=== PATIENT | female | born 1985 | race Caucasian/White ===

== ENCOUNTER 2018-10-21 13:40 | Outpatient (REF) | payer MEDICAID, SELFPAY ==
--- NOTE | 2018-10-21 11:20 | PAPFT_PTH ---
PATIENT: Lucía Powell LOC: [facility]#:[id number] AGE/SX: 33/F ROOM: RE10/21/[address]: Jazmyn Wang : 1985 BED: DIS: 10/21/2018 SPEC #: [id number] RECD: 10/22/18 11:51 STATUS: KORI CLAY #: [id number] BRITTNEY: 10/21/18 11:[address]: Jazmyn Wang DEPT: [facility] Cytology RECD BY: Elizabeth Haley Tissues: 1 - CX/ENDOCX FOR PAP SMEARS Procedures: PAP THIN PREP/UVM Screening HPV DNA PROBE Comments: [id number]
[2018-10-21 22:02] LABS: Abs Immature Grans 0.01 k/cumm (0.0-0.09); Absolute Basophil Count 0.02 k/cumm (0.0-0.2); Absolute Eosinophil Count 0.08 k/cumm (0.0-0.7); Absolute Lymphocyte Count 1.24 k/cumm (1.2-3.4); Absolute Monocyte Count 0.37 k/cumm (0.11-0.7); Absolute Neutrophil Count 3.22 k/cumm (1.2-6.7); Basophils % 0.4; Eosinophils % 1.6; HCT 41.1 % (36.0-46.0); HGB 13.9 g/dL (12.0-15.5); Immature Grans % 0.2; Lymphocytes % 25.1; Mean Corp. HGB Concentration 33.8 g/dL (32.0-36.0); Mean Corpuscular Hemoglobin 31.5 pg (27.0-33.0); Mean Corpuscular Volume 93.2 fL (80-95); Mean Platelet Volume 12.3 fL (8.0-11.0); Monocytes % 7.5; Neutrophils % 65.2; Platelet Count 207 x1000/uL (130-400); RBC 4.41 m/cumm (4.00-5.20); RBC Distribution Width 12.5 % (11.7-14.6); White Blood Cell Count 4.94 k/cumm (4.4-10.8)
[2018-10-21 22:48] LABS: Anion Gap 9.6 mmol/L (3-11); BUN 8 mg/dL (7-18); C-Reactive Protein 0.19 mg/dL (0.0-0.3); CO2 25.4 mmol/L (21.0-32.0); CREATININE 0.71 mg/dL (0.55-1.02); Calcium 9.1 mg/dL (8.5-10.1); Chloride 105 mmol/L (98-107); Glucose 89 mg/dL (70-100); Magnesium 2.1 mg/dL (1.8-2.4); Sodium 140 mmol/L (136-145); TSH (W/Ref FT4) 1.44 uIU/mL (0.358-3.74)
[2018-10-21 23:03] LABS: ESR 6 MM/HR (0-20)
[2018-10-23 09:33] LABS: Cyclic Citrullinated Peptide <2.5 U/mL (<5.0)
[2018-10-23 10:25] LABS: Rheumatoid Factor <8 IU/mL (<12.5)
[2018-10-23 12:31] LABS: Chlamydia Result Negative; GC Result Negative; Specimen Description SEE COMMENTS
[2018-10-24 14:38] LABS: ANA Interpretation Negative (NEGAT)
== END 2018-10-21 14:00 ==
LOC: NCHCN 13:40
PROVIDERS: PCP Nurse Practitioner Family; Visit Provider Nurse Practitioner Family
DX: M25.50 Pain in unspecified joint (principal); R10.2 Pelvic and perineal pain; F41.8 Other specified anxiety disorders; R06.83 Snoring; F17.210 Nicotine dependence, cigarettes, uncomplicated; J30.2 Other seasonal allergic rhinitis; Z00.00 Encounter for general adult medical examination without abnormal findings; Z12.4 Encounter for screening for malignant neoplasm of cervix; Z11.51 Encounter for screening for human papillomavirus (HPV); Z01.419 Encounter for gynecological examination (general) (routine) without abnormal findings
CPT/HCPCS: 80048; 85652; 86200; 87491; 87591; 88142; 83735; 84443; 85025; 86038; 86140; 86431; 87624

== ENCOUNTER 2020-11-23 20:52 | Emergency (ER) | payer MEDICAID, SELFPAY ==
[2020-11-23] VITALS (22 sets, daily range): BP systolic 100–130; BP diastolic 55–97; PULSE 55–91; RESP 5–26; TEMP 37.1; O2SAT 96–100
--- NOTE | 2020-11-23 20:45 | RT.EKG_ITS ---
APPROVED REPORT Exam: Resting ECG Reason for Exam: chest pain Patient Location: E HR:88 bpm ECG Measurements Heart Rate 88 AXIS KS 145 P 44 QRSd 115 QRS 66 QT 377 T -17 QTc 457 Conclusion Sinus rhythm...normal P axis, V-rate 60- 99 Incomplete right bundle branch block...QRSd >112, terminal axis(90,270)
--- NOTE | 2020-11-23 21:15 | DI.CT_ITS ---
Exam(s) CT CHEST PE CTA EXAM: CT CHEST PE CTA CLINICAL HISTORY: chest pain, left back to chest. TECHNIQUE: Imaging Protocol: CT angiography of the chest was performed using pulmonary embolus bro col. Multi planar reconstructions were performed. CONTRAST MATERIAL: Intravenous: Omnipaque 350 Contrast volume: 100 cc COMPARISON: CR CHEST 2 VIEWS PA,LAT from 02/05/2013 CR CHEST 2 VIEWS PA,LAT from 02/05/2013 FINDINGS: CHEST: PULMONARY ARTERIES: There are no intraluminal filling defects to suggest acute pulmonary emboli. LUNGS: Increased markings in the lung bases consistent with some atelectasis and less than optimal in spiratory effort. No air bronchograms. No confluent infiltrates. No evidence of pulmonary infarcti on.. There are no pleural effusions. No significant focal findings in trachea and mainstem bronchi. MEDIASTINUM: There is no hilar nor mediastinal adenopathy. Visualized thyroid unremarkable. CARDIAC: Heart size is upper normal. There is no pericardial effusion.Caliber of the thoracic aorta is within normal limits. There is no significant shift of the interventricular septum. PARTIALLY VISUALIZED UPPERMOST ABDOMEN: No obvious findings OSSEOUS: No significant osseous lesions.. IMPRESSION: 1. No evidence of acute pulmonary emboli. No evidence of pulmonary infarction.No pleural effusions. 2. Mild increased markings in the lower lobes bilaterally. Probably exaggerated by less than optimal inspiratory effort. No intrathoracic adenopathy evident. RADIATION DOSE DELIVERED: 477mGy.cm Total DLP DATA REPOSITORY: All CT scans at this facility are submitted to the National Radiology Data Registry (NRDR) Dose Index Registry (DIR) with the [employer] (ACR). RADIATION OPTIMIZATION: All CT scans at this facility use at least one of these dose optimization te chniques: automated exposure control; mA and/or kV adjustment per patient size (includes targeted exa ms where dose is matched to clinical indication); or iterative reconstruction.
[2020-11-23] MEDS: HYDROmorphone 2 MG/ML VIAL 1 MG IVP (21:34)
[2020-11-23 21:39] LABS: Abs Immature Grans 0.02 10^3/uL (0.0-0.06); Absolute Basophil Count 0.03 10^3/uL (0.0-0.2); Absolute Eosinophil Count 0.07 10^3/uL (0.0-0.7); Absolute Lymphocyte Count 2.59 10^3/uL (1.2-3.4); Absolute Monocyte Count 0.47 10^3/uL (0.1-0.8); Basophils % 0.5; Eosinophils % 1.1; HGB 12.9 g/dL (11.2-15.7); Immature Grans % 0.3; MCH 30.5 pg (27.0-33.0); MCHC 33.1 % (32.0-36.0); MCV 92.2 fL (80-95); MPV 10.2 fL (8.0-11.0); Monocytes % 7.3; Neutrophils % 50.8; Nucleated RBC 0 %; Platelet Count 269 10^3/uL (130-400); RBC 4.23 10^6/uL (3.93-5.22); RDW 12.3 % (11.7-14.6); WBC 6.48 10^3/uL (4.4-10.8)
[2020-11-23 21:57] LABS: Lipase 97 U/L (73-393)
[2020-11-23 22:03] LABS: ALT 22 U/L (14-59); AST 11 U/L (15-37); Albumin 3.8 g/dL (3.4-5.0); Alkaline Phosphatase 43 U/L (46-116); Anion Gap 9.6 mmol/L (3-11); BUN 11 mg/dL (7-18); Bilirubin, Total 0.4 mg/dL (0.2-1.0); CO2 26.4 mmol/L (21.0-32.0); CREATININE 0.8 mg/dL (0.55-1.02); Calcium 9.1 mg/dL (8.5-10.1); Chloride 106 mmol/L (98-107); Glucose 92 mg/dL (74-106); Potassium 3.3 mmol/L (3.5-5.1); Sodium 142 mmol/L (136-145); Total Protein 6.6 g/dL (6.4-8.2)
[2020-11-23 22:04] LABS: Troponin I < 0.05 ng/mL (<0.06)
--- NOTE | 2020-11-23 22:40 | ED.GENADUL_ITS ---
Discharge Plan Disposition Patient Disposition: HOME Condition: Stable Discharge Details Clinical Impression: Left-sided thoracic back pain, Chest pain Primary Care Provider: Jazmyn Wang ED Provider: Kelsy Whyte Home Meds and New Rx's Prescriptions: New methocarbamol 500 mg tablet 500 mg PO Q6H PRN (Reason: muscle spasm) Qty: 14 RF: 0 lidocaine [Lidoderm] 5 % adhesive patch,medicated 1 patch TP DAILY PRN (Reason: pain) Qty: 15 RF: 0 Continued acetaminophen [Tylenol] 325 MG tablet 325 mg PO PC & HS RF: 0 ibuprofen [Ibuprofen IB] 200 MG tablet 200 mg PO PRN PRNRF: 0 Discharge Instructions Instructions: Chest Pain (ED), Back Pain (ED) Additional Instructions: Alternate ice and heat to the affected area(s) several times daily for 20 minutes at a time. Alternate tylenol and motrin as needed and directed for pain. Take the muscle relaxer methocarbamol and use the Lidoderm patches as needed and directed for pain. Your prescriptions have been sent electronically to your pharmacy. Call the pharmacy to make sure your prescriptions are ready before pickup. Take the prescriptions as directed. Follow-up with your primary care doctor in 1 week. Return to the emergency department with any worsening or new concerning symptoms. Referrals: Jazmyn Wang [Primary Care Provider] - Discharge Data Discharge Date/Time-TO BE ENTERED AT DEPARTURE: 11/24/20 02:03 Discharge Physician: Kelsy Whyte Medical Decision Making <Chacho Ba MD - Last Filed: 11/27/20 10:47> 2249 -- 35-year-old female here with severe pain in her back that radiates through to her chest. Considered acute pulmonary embolism versus aortic dissection. Plan to obtain CT of the chest. Considered ACS. EKG was reviewed and interpreted by me: Sinus rhythm 88 bpm, normal axis, incomplete right bundle branch block, nondiagnostic. Patient was given Dilaudid 1 mg IV for severe pain. Initial labs reviewed -mild hypokalemia noted. I will give potassium chloride 20 mEq PO. 2350 --CT of the chest was interpreted by radiology: Aorta unremarkable. No aortic aneurysm. No aortic dissection. Heart unremarkable. No cardiomegaly. No pericardial effusion. Pleural space is unremarkable. No pneumothorax. No pleural effusion. Lungs unremarkable. There is bibasilar subsegmental atelectasis. No evidence for pulmonary embolism. Patient reassessed and pain has significantly improved. Plan to repeat troponin and I will also give acetaminophen 1 g IV. Results were discussed with the patient. <Kelsy Whyte DO - Last Filed: 11/24/20 04:48> 2300 --please see Dr. Ba's note for initial presentation, exam and plan. Case endorsed to follow-up on repeat troponin and EKG and if unremarkable, plan for discharge home. Repeat troponin negative. Repeat EKG unchanged. Patient reassessed and she is still complaining of left upper back pain. This pain is tender to palpation and reproducible with movement. It is most likely musculoskeletal. Patient does feel comfortable going home. She was given a dose of Decadron, Toradol and Valium. She has a ride home. We will send a prescription for muscle relaxer to her pharmacy. She is advised to alternate Tylenol and Motrin, ice and heat. Advised to follow-up with her primary care doctor for reevaluation and for referral for potential physical therapy or consideration of trigger point injection if indicated. Usual and customary return precautions given prior to discharge. Medical Records Medical records reviewed: Yes I reviewed the patient's medical records. Imaging Data Radiologic Study: Radiologist's impression: CTA Chest With Contrast Exam date and time: 11/23/2020 9:26 PM Age: 35 years old Clinical indication: Pain; Radiating TECHNIQUE: Imaging protocol: Computed tomographic angiography of the chest with contrast. 3D rendering (Not supervised by radiologist): MIP and/or 3D reconstructed images were created by the technologist. COMPARISON: No relevant prior studies available. FINDINGS: Pulmonary arteries: Unremarkable. No pulmonary emboli. Aorta: Unremarkable. No aortic aneurysm. No aortic dissection. Lungs: Unremarkable. No consolidation. No masses. There is bibasilar subsegmental atelectasis. Pleural spaces: Unremarkable. No pneumothorax. No pleural effusion. Heart: Unremarkable. No cardiomegaly. No pericardial effusion. Lymph nodes: Unremarkable. No enlarged lymph nodes. Bones/joints: Unremarkable. No acute fracture. Soft tissues: Unremarkable. IMPRESSION: No evidence for pulmonary embolism. Lab Data Lab results reviewed: Yes I reviewed the patient's lab results. ECG Data Attestation: I personally reviewed and interpreted this ECG (s) as follows: Interpretation: rate of 47, sinus, no acute ST elevation or depression. SD 151. QTc 402. HPI <Chacho Ba MD - Last Filed: 11/27/20 10:47> General Mode of arrival: ambulatory . Date/Time Provider Initiated Documentation: 11/23/20 21:14 . Limitations to Documentation: no limitations . Information obtained by: patient . HPI Narrative: 35-year-old female presents with chief complaint of chest pain. Patient notes that she has had intermittent chest pain over the past few weeks. She states pain is radiating from her left back through her chest. Pain is severe and now constant tonight. No modifiers. She has no associate abdominal pain or nausea vomiting. No shortness of breath. Patient does state she has been under a lot of stress recently and had to put her dog down. Related Data Home Medications Medication Instructions Recorded Confirmed acetaminophen [Tylenol] 325 mg PO PC & HS 07/16/15 11/23/20 ibuprofen [Ibuprofen IB] 200 mg PO PRN PRN 07/16/15 11/23/20 lidocaine [Lidoderm] 1 patch TP DAILY PRN #15 each 11/24/20 methocarbamol 500 mg PO Q6H PRN #14 tab 11/24/20 Previous Rx's Medication Instructions Recorded lidocaine [Lidoderm] 1 patch TP DAILY PRN #15 each 11/24/20 methocarbamol 500 mg PO Q6H PRN #14 tab 11/24/20 Allergies Allergy/AdvReac Type Severity Reaction Status Date / Time No Known Drug Allergies Allergy Unverified 07/16/15 15:29 General Stated Complaint: Chest Pain ELOY: 3 Review of Systems <Chacho Ba MD - Last Filed: 11/27/20 10:47> All systems reviewed & are unremarkable except as noted in HPI and below Constitutional Constitutional: Denies fever(s) Cardiovascular Cardiovascular: Reports as per HPI, Reports chest pain and Denies dyspnea Respiratory Respiratory: Denies dyspnea PFSH <Chacho Ba MD - Last Filed: 11/27/20 10:47> Surgical History section (07/11/12) repeat c/s with BTL Ligation of fallopian tube REPAIR LACERATED EXTENSOR TENDON LIF (07/20/14) Social History Smoking/Tobacco Use Status: Current every day Smoking risk assessment performed?: Yes Alcohol Intake: never Drug use: Occasionally Substance use type: marijuana Do you feel safe at home: Yes Do you feel safe in your relationship?: Yes Exam <Chacho Ba MD - Last Filed: 11/27/20 10:47> Const General: cooperative and no acute distress HENMT Mouth: moist mucous membranes Eyes Conjunctivae: normal conjunctivae Sclera: normal sclerae Neck Neck: trachea midline and supple Resp Auscultation: clear to auscultation bilaterally, no rales, no rhonchi and no wheezes Cardio Rate: regular rate and not tachycardic Rhythm: regular rhythm GI Palpation: soft, not firm, no guarding, no masses, not rigid and nontender Skin General skin exam: no rashes or lesions noted Neuro General: patient alert, patient awake, patient oriented x3 and tone normal Extrem General: no calf tenderness and no edema Psych Appearance: grossly normal Mental Status: mental status grossly normal Other: Tearful Course <Chacho Ba MD - Last Filed: 11/27/20 10:47> Vital Signs Vital signs: Vital Signs Temperature 37.1 C 11/23/20 21:00 Pulse 91 H 11/23/20 21:00 Respiratory Rate 20 11/23/20 21:00 Blood Pressure 130/97 H 11/23/20 21:00 Pulse Oximetry 100 11/23/20 21:00 Temperature 37.1 C 11/23/20 21:00 Temperature Source Temporal Artery Scan 11/23/20 21:00 Pulse 91 H 11/23/20 21:00 Respiratory Rate 20 11/23/20 21:08 Respiratory Effort 11/23/20 21:08 Respiratory Depth Normal 11/23/20 21:08 Respiratory Pattern Normal 11/23/20 21:08 Blood Pressure 130/97 H 11/23/20 21:00 Blood Pressure Position Sitting 11/23/20 21:00 Pulse Oximetry 100 11/23/20 21:00 Oxygen Delivery Method Room Air 11/23/20 21:00 Oxygen Flow Rate 0 11/23/20 21:00 Pain Level 7 11/23/20 21:34 Comment 11/23/20 21:00 Lab/Test Results Lab/Test Results: Laboratory Tests Range/Units 11/23/20 11/23/20 11/23/20 21:30 21:30 21:30 WBC (4.4-10.8) 10^3/uL 6.48 RBC (3.93-5.22) 10^6/uL 4.23 Hgb (11.2-15.7) g/dL 12.9 Hct (36.0-46.0) % 39.0 MCV (80-95) fL 92.2 MCH (27.0-33.0) pg 30.5 MCHC (32.0-36.0) % 33.1 RDW (11.7-14.6) % 12.3 Plt Count (130-400) 10^3/uL 269 MPV (8.0-11.0) fL 10.2 Immature Gran % 0.3 Neutrophils % 50.8 Lymphocytes % 40.0 Monocytes % 7.3 Eosinophils % 1.1 Basophils % 0.5 Nucleated RBC % % 0 Absolute Neutrophils (1.2-6.7) 10^3/uL 3.30 Absolute Lymphocytes (1.2-3.4) 10^3/uL 2.59 Absolute Monocytes (0.1-0.8) 10^3/uL 0.47 Absolute Eosinophils (0.0-0.7) 10^3/uL 0.07 Absolute Basophils (0.0-0.2) 10^3/uL 0.03 Sodium (136-145) mmol/L 142 Potassium (3.5-5.1) mmol/L 3.3 L Chloride (98-107) mmol/L 106 Carbon Dioxide (21.0-32.0) mmol/L 26.4 Anion Gap (3-11) mmol/L 9.6 BUN (7-18) mg/dL 11 Creatinine (0.55-1.02) mg/dL 0.8 Estimated GFR/1.73 m2 (mL/min/1.73m2) >= 60.00 Glucose (74-106) mg/dL 92 Calcium (8.5-10.1) mg/dL 9.1 Total Bilirubin (0.2-1.0) mg/dL 0.4 AST (15-37) U/L 11 L ALT (14-59) U/L 22 Alkaline Phosphatase (46-116) U/L 43 L Troponin I (<0.06) ng/mL < 0.05 Total Protein (6.4-8.2) g/dL 6.6 Albumin (3.4-5.0) g/dL 3.8 Lipase (73-393) U/L 97 Sign Out <Chacho Ba MD - Last Filed: 11/27/20 10:47> Sign Out Data: Sign Out Comment: followup delta trop and reassess for disposition post acetaminophen IV. Last updated by Chacho Ba MD at 11/23/20 23:51
[2020-11-23] MEDS: Omnipaque 350 MG/ML 100 ML BTL IJ (22:53)
[2020-11-23] MEDS: Normal Saline - Diluent 50 ML VIAL IV (22:54)
[2020-11-23] MEDS: Normal Saline Flush 10 ML SYR IVP (22:54)
--- NOTE | 2020-11-23 23:28 | DI.VRAD_ITS ---
PROCEDURE INFORMATION: Exam: CTA Chest With Contrast Exam date and time: 11/23/2020 9:26 PM Age: 35 years old Clinical indication: Pain; Radiating TECHNIQUE: Imaging protocol: Computed tomographic angiography of the chest with contrast. 3D rendering (Not supervised by radiologist): MIP and/or 3D reconstructed images were created by the technologist. COMPARISON: No relevant prior studies available. FINDINGS: Pulmonary arteries: Unremarkable. No pulmonary emboli. Aorta: Unremarkable. No aortic aneurysm. No aortic dissection. Lungs: Unremarkable. No consolidation. No masses. There is bibasilar subsegmental atelectasis. Pleural spaces: Unremarkable. No pneumothorax. No pleural effusion. Heart: Unremarkable. No cardiomegaly. No pericardial effusion. Lymph nodes: Unremarkable. No enlarged lymph nodes. Bones/joints: Unremarkable. No acute fracture. Soft tissues: Unremarkable. IMPRESSION: No evidence for pulmonary embolism. Dictated and Authenticated by: Sae Kelley MD. Ordering:COLIN Flor MD
[2020-11-24] VITALS (22 sets, daily range): BP systolic 92–106; BP diastolic 53–71; PULSE 49–78; RESP 11–25; TEMP 36.6; O2SAT 97–100
--- NOTE | 2020-11-24 00:15 | RT.EKG_ITS ---
APPROVED REPORT Exam: Resting ECG Reason for Exam: CHEST PAIN Patient Location: E HR:47 bpm ECG Measurements Heart Rate 47 AXIS OH 151 P 35 QRSd 107 QRS 58 QT 454 T 21 QTc 402 Conclusion Sinus bradycardia...rate< 60 Low voltage, extremity leads...all extremity leads <0.5mV. Sinus. No STEMI. I have reviewed and interpreted ECG and agree with software generated interpretation.
[2020-11-24] MEDS: Potassium Chloride 20 MEQ TABCR PO (00:16)
[2020-11-24 01:06] LABS: Troponin I < 0.05 ng/mL (<0.06)
[2020-11-24] MEDS: Dexamethasone 10 MG/ML VIAL IVP (01:35)
[2020-11-24] MEDS: diazePAM 5 MG TAB PO (01:36)
[2020-11-24] MEDS: Ketorolac 30 MG/ML VIAL IVP (01:36)
== END 2020-11-24 02:03 | disposition home or self-care (01) ==
PROVIDERS: Student in an Organized Health Care Education/Training Program; Emergency Provider Physician Assistant; PCP Nurse Practitioner Family
DX: M54.6 Pain in thoracic spine (principal); R07.9 Chest pain, unspecified
CPT/HCPCS: 36415; 71275; 80053; 83690; 93005; 96374; 96375; 99285; 84484; 85025; 93010; 99284; J1100; J1885; J3490

== ENCOUNTER 2020-11-25 16:47 | Outpatient (REF) | payer MEDICAID, SELFPAY ==
[2020-11-25 20:01] LABS: ESR < 1 mm/hr (0-20)
[2020-11-25 20:25] LABS: Creatine Kinase 56 U/L (26-192)
[2020-11-28 14:59] LABS: ANA Interpretation Negative (Negative)
== END 2020-11-25 16:48 | disposition home or self-care (01) ==
LOC: NCHCN 16:47
PROVIDERS: PCP Nurse Practitioner Family; Visit Provider Family Medicine
DX: M79.18 Myalgia, other site (principal)
CPT/HCPCS: 82550; 85652; 86038

== ENCOUNTER 2022-01-22 14:01 | Outpatient (REF) | payer MEDICAID, SELFPAY ==
--- NOTE | 2022-01-22 13:30 | PAPFT_PTH ---
PATIENT: Lucía Powell LOC: [facility]#:[id number] AGE/SX: 36/F ROOM: RE01/22/[address]: Jazmyn Wang : 1985 BED: DIS: 01/22/2022 SPEC #: [id number] RECD: 01/22/22 18:25 STATUS: KORI REQ #: [id number] BRITTNEY: 01/22/22 13:[address]: Jazmyn Wang DEPT: REPLACED BY [facility] Cytology RECD BY: Melissa Shah Tissues: 1 - CX/ENDOCX FOR PAP SMEARS Procedures: PAP THIN PREP/UVM Screening HPV DNA PROBE Comments: [id number]
== END 2022-01-22 14:02 | disposition home or self-care (01) ==
LOC: NCHCN 14:01
PROVIDERS: PCP Nurse Practitioner Family; Visit Provider Nurse Practitioner Family
DX: Z12.4 Encounter for screening for malignant neoplasm of cervix (principal); R87.610 Atypical squamous cells of undetermined significance on cytologic smear of cervix (ASC-US); Z11.51 Encounter for screening for human papillomavirus (HPV)
CPT/HCPCS: 88142; 87624

== ENCOUNTER 2022-04-25 17:05 | Emergency (ER) | payer MEDICAID, SELFPAY ==
[2022-04-25 17:43] VITALS: BP 132/89; PULSE 68; RESP 18; TEMP 37.2; O2SAT 98
== END 2022-04-25 18:34 | disposition left against medical advice (07) ==
PROVIDERS: PCP Nurse Practitioner Family
DX: Z53.21 Procedure and treatment not carried out due to patient leaving prior to being seen by health care provider (principal)

== ENCOUNTER 2023-02-15 12:40 | Outpatient (CLI) | payer MEDICAID, SELFPAY ==
[2023-02-15 12:07] LABS: Abs Immature Grans 0.01 10^3/uL (0.0-0.06); Absolute Basophil Count 0.04 10^3/uL (0.0-0.2); Absolute Eosinophil Count 0.06 10^3/uL (0.0-0.7); Absolute Lymphocyte Count 1.77 10^3/uL (1.2-3.4); Absolute Monocyte Count 0.31 10^3/uL (0.1-0.8); Absolute Neutrophil Count 2.43 10^3/uL (1.2-6.7); Basophils % 0.9; Eosinophils % 1.3; HCT 40.3 % (36.0-46.0); HGB 13.2 g/dL (11.2-15.7); Immature Grans % 0.2; Lymphocytes % 38.3; MCH 30.2 pg (27.0-33.0); MCHC 32.8 % (32.0-36.0); MCV 92 fL (80-95); MPV 10.4 fL (8.0-11.0); Monocytes % 6.7; Neutrophils % 52.6; Platelet Count 278 10^3/uL (130-400); RBC 4.37 10^6/uL (3.93-5.22); RDW 12.4 % (11.7-14.6); RDW-SD 42.3 fL; WBC 4.62 10^3/uL (4.4-10.8)
[2023-02-15 12:35] LABS: ALT 22 U/L (14-59); AST 12 U/L (15-37); Albumin 3.9 g/dL (3.4-5.0); Alkaline Phosphatase 44 U/L (46-116); Anion Gap 7.4 mmol/L (3-11); BUN 8 mg/dL (7-18); Bilirubin, Total 0.3 mg/dL (0.2-1.0); CO2 25.6 mmol/L (21.0-32.0); CREATININE 0.8 mg/dL (0.55-1.02); Calcium 9.2 mg/dL (8.5-10.1); Chloride 106 mmol/L (98-107); Estimated GFR 97.87 (mL/min/1.73m2); Glucose 111 mg/dL (74-106); Potassium 4.2 mmol/L (3.5-5.1); Sodium 139 mmol/L (136-145)
== END 2023-02-15 12:41 | disposition home or self-care (01) ==
LOC: LBO 12:40
PROVIDERS: PCP Nurse Practitioner Family; Visit Provider Nurse Practitioner Family
DX: R10.32 Left lower quadrant pain; R51.9 Headache, unspecified; F41.8 Other specified anxiety disorders
CPT/HCPCS: 36415; 80053; 85025

== ENCOUNTER → 2023-03-01 02:21 | Outpatient (CLI) | payer MEDICAID, SELFPAY ==
--- NOTE | 2023-03-01 | DI.CT_ITS ---
Exam(s) CT ABDOMEN PELVIS W EXAM: CT ABDOMEN PELVIS W CLINICAL HISTORY: ABD AND LLQ PAIN, R10.9,R10.32. TECHNIQUE: Imaging Protocol: Axial computed tomography images with coronal and sagittal reformatted images were created and reviewed CONTRAST MATERIAL: Intravenous: Omnipaque 350 Contrast volume:100 ml Oral: yes / COMPARISON: CT CT CHEST PE CTA from 11/23/2020 FINDINGS: ABDOMEN and PELVIS: Lung Bases: Normal where visualized. Liver: Normal density. No measurable mass. Gallbladder and biliary tract: No radiodense calculus or dilation. Pancreas: Normal density. No abnormal calcifications or inflammatory process. No evidence of mass. Spleen: Normal. Kidneys: Normal size, contour and axis. No radiodense stones. No obstructive uropathy. No suspicious masses seen. Adrenal glands: No masses seen. Vasculature: Abdominal aorta non-dilated. Soft tissues: Unremarkable. Bladder: No gross wall thickening. No calculi.No focal mass. Bowel: No obstruction. No bowel wall thickening. Appendix normal. Moderate quantity of stool. Peritoneal cavity: No ascites. No focal collection or mesenteric inflammatory response. Bones: Unremarkable for age. Reproductive organs: Within normal limits. Lymph nodes: Unremarkable. IMPRESSION:: Unremarkable CT scan of the abdomen and pelvis. RADIATION DOSE DELIVERED: Total DLP DATA REPOSITORY: All CT scans at this facility are submitted to the National Radiology Data Registry (NRDR) Dose Index Registry (DIR) with the [employer] (ACR). RADIATION OPTIMIZATION: All CT scans at this facility use at least one of these dose optimization te chniques: automated exposure control; mA and/or kV adjustment per patient size (includes targeted exa ms where dose is matched to clinical indication); or iterative reconstruction.
[2023-03-01] MEDS: Barium Sulfate 2% W/V-Berry Smoothie 450 ML BTL PO (08:59)
[2023-03-01] MEDS: Normal Saline - Diluent 50 ML VIAL IJ (11:20)
[2023-03-01] MEDS: Omnipaque 350 MG/ML 500 ML BTL-Imaging package 100 ML IJ (11:22)
== END ==
PROVIDERS: PCP Nurse Practitioner Family; Visit Provider Nurse Practitioner Family
DX: R10.32 Left lower quadrant pain
CPT/HCPCS: 74177

== ENCOUNTER 2024-01-20 14:33 | Outpatient (REF) | payer MEDICAID, SELFPAY ==
--- NOTE | 2024-01-20 12:30 | PAPFT_PTH ---
PATIENT: Lucía Powell LOC: [facility]#:[id number] AGE/SX: 38/F ROOM: RE01/20/[address]: Jazmyn Wang : 1985 BED: DIS: 01/20/2024 SPEC #: [id number] RECD: 01/21/24 12:56 STATUS: KORI REQ #: [id number] BRITTNEY: 01/20/24 12:[address]: Jazmyn Wang DEPT: [facility] Cytology RECD BY: Melissa Shah Tissues: 1 - CX/ENDOCX FOR PAP SMEARS Procedures: PAP THIN PREP/UVM Screening HPV DNA PROBE Comments: [id number] (HPV 16 & 18/45)
--- OUTSIDE RECORDS SUMMARY | 2024-01-20 14:40 | XMS_ITS | Encounter Summary ---
Author Organization [facility] Address [address] [place] [address] Care Team Providers Care Metal Sprayer Name Role Phone Kylie De La Torre MERT Primary Care Provider [phone] Encounter Details Date Type Department Care Team (Late st Contact Info) Description 10/09/2011 Results Only [facility] [phone] Jitendra Calle MD [address] [place] [address] Social History Tobacco Use Types Packs/Day Years Used Date Smoking Tobacco: Never Assessed Sex and Gender Information Value Date Recorded Sex Assigned at Not on file Gender Identity Not on file Sexual Orientation Not on file documented as of this encounter Plan of Treatment Not on file documented as of this encounter Procedures Procedure Name Priority Date/Time Associated Diagnosis Comments SURGICAL PATHOLOGY Routine 10/09/2011 0:00 EDT documented in this encounter Results * SURGICAL PATHOLOGY (10/09/2011 0:00 EDT) Pathology Report: SURGICAL PATHOLOGY REPORT Reports generated via electronic interface contain original data; however they are lacking the format of the original report. Caution should be taken when reading/interpreti ng unformatted reports. Name: ? LOIDA SYED ? Accession #: ? [id number] ? : ? 1985 (Age: 26) ??F ? Collect Date: ? 10/09/2011 ? Location: ? [facility] ? Receive Date: ? 10/09/2011 ? Provider: JITENDRA CALLE MD Copy to: KYLIE DE LA TORRE POWDER EXPERT ? Final Pathologic Diagnosis: ? A. ?Cervix, 6 o'clock, biopsy: 1. ?Acute and chronic cervicitis. 2. ? Squamous mucosa with reactive epithelial changes. ??See comment. 3. ? Focal parakeratosis. B. ?Endocervix, curettage: 1. ?Benign endocervical tissue. Comment: ? 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 ??The dysplastic cells seen on the Pap test are not identified on the current case. ??Deeper sections have been reviewed on (A). ??(Dr. Parada)/[facility] Document reviewed and electronically signed by: ALEJANDRA AMBROCIO MD Report ??Date: 10/15/2011 13:53 By the signature above, the attending physician certifies that he/she has personally conducted a gross and/or microscopic examination of the described specimens and rendered or confirmed the above diagnosis. Specimen(s) Received: A. ?Ectocervix 6 o'clock B. ? ECC Clinical History: ? 08/24/2011 Pap LSIL; 12/05/2010 Pap LSIL Gross Description: ? Received in formalin labelled Loida Syed and ectocvx 6 o'clock is a zhou-pink biopsy measuring 0.6 x 0.4 x 0.3 cm. ??The specimen is submitted intact as (A). Received in formalin labelled Andre, Loida and ECC is 1.5 cc of blood-tinged mucus admixed with fragments of red-brown tissue. ??The specimen is entirely submitted as (B) following filtration. ??(Parmjit Sparrow)/[facility] End of Report [facility] 10/09/2011 10/09/2011 16: 27 EDT Jitendra Calle MD PATHOLOGY ORDERABLES Performing Organization Address City/State/[facility] Co de Phone Number [facility] [address] [place] [address] documented in this encounter Visit Diagnoses Not on filedocumented in this encounter Care Teams Metal Sprayer Relationship Specialty Start Date End Date Kylie De La Torre FNP [address] [place], [place] [id number] PCP - General 07/16/11 12/20/21 documented as of this encounter
--- OUTSIDE RECORDS SUMMARY | 2024-01-20 14:40 | XMS_ITS | Encounter Summary ---
Author Organization [facility] Address [address] [place] [address] Care Team Providers Care Order Booker Name Role Phone Diamond De La Torre Primary Care Provider [phone] Encounter Details Date Type Department Care Team (Late st Contact Info) Description 02/20/2019 10:44 EDT Hospital Encounter [address] [address] Unknown, Provider, Social History Tobacco Use Types Packs/Day Years Used Date Smoking Tobacco: Never Assessed Interpersonal Safety Answer Date Record ed Physically Hurt Never 11/22/2019 Verbally Threaten Not on file 11/22/2019 Sex and Gender Information Value Date Recorded Sex Assigned at Not on file Gender Identity Not on file Sexual Orientation Not on file documented as of this encounter Plan of Treatment Not on file documented as of this encounter Visit Diagnoses Not on filedocumented in this encounter Care Teams Order Booker Relationship Specialty Start Date End Date Diamond De La Torre FNP [address] [place], [place] [address] PCP - General 07/16/11 12/20/21 documented as of this encounter
--- OUTSIDE RECORDS SUMMARY | 2024-01-20 14:40 | XMS_ITS | Encounter Summary ---
Author Organization [facility] Address [address] [place] [address] Care Team Providers Care Strip Tank Tender Name Role Phone Kylie De La Torre MERT Primary Care Provider [phone] Encounter Details Date Type Department Care Team (Late st Contact Info) Description 07/09/2012 Results Only [facility] [phone] Jitendra Calle MD [address] [place] [address] Social History Tobacco Use Types Packs/Day Years Used Date Smoking Tobacco: Never Assessed Sex and Gender Information Value Date Recorded Sex Assigned at Not on file Gender Identity Not on file Sexual Orientation Not on file documented as of this encounter Plan of Treatment Not on file documented as of this encounter Procedures Procedure Name Priority Date/Time Associated Diagnosis Comments PAP TEST- RESULT ONLY Routine 07/09/2012 0:00 EDT documented in this encounter Results * PAP TEST- RESULT ONLY (07/09/2012 0:00 EDT) Pathology Report: CYTOPATHOLOGY REPORT Reports generated via electronic interface contain original data; however they are lacking the format of the original report. Caution should be taken when reading/interpreti ng unformatted reports. Name: ? LOIDA SYED ? Accession #: ? [id number] : ? 1985 (Age: 27) ??F ?Collect Date: ? 07/09/2012 Location: ? [facility] ? Receive Date: ? 07/10/2012 Provider: ?JITENDRA CALLE MD Copy to: ?KYLIE PAINTING ? Specimen/Source: ?Pap Test, Cervix/Endocervix, ThinPrep Imaging System with manual evaluation Last Menstrual Period: ? Previous Gynecologic Pathology: ? LSIL Treatment History: ? Colposcopy: NEG ? SPECIMEN ADEQUACY ? Satisfactory for Evaluation - transformation zone component present GENERAL CATEGORIZATION ? Epithelial Cell Abnormality INTERPRETATION ? Squamous Cell Abnormality - Low grade squamous intraepithelial lesion (LSIL). EDUCATIONAL NOTES/RECOMMENDATI ONS ? [facility] recommends following the 2006 Consensus Guidelines for the Management of Women with Abnormal Cervical Cancer Screening Tests (JLGTD, 2007;11(4):201-222 ). ??Consensus guidelines are available online at www.ASCCP.org. ? Document reviewed and electronically signed by: ? KYAW MENCHACA MD ? Report Date: ??07/15/2012 15:18 End of Report [facility] 07/09/2012 07/10/2012 Jitendra Calle MD PATHOLOGY ORDERABLES Performing Organization Address City/State/[facility] Co de Phone Number [facility] [address] [place] [address] documented in this encounter Visit Diagnoses Not on filedocumented in this encounter Care Teams Strip Tank Tender Relationship Specialty Start Date End Date Kylie De La Torre FNP [address] [place] [address] PCP - General 07/16/11 12/20/21 documented as of this encounter
--- OUTSIDE RECORDS SUMMARY | 2024-01-20 14:40 | XMS_ITS | Encounter Summary ---
Author Organization [facility] [address] Care Team Providers Care Inspector Fuel Hose Name Role Phone None Primary Care Provider Unavailabl e Reason for Visit * Reason Comments Ultrasound Finding Encounter Details Date Type Department Care Team (Late st Contact Info) Description 03/06/2011 10:00 AM EST Office Visit Obstetrics [place] [address] Jesica Chew MD [facility] [address] [place] [address] Suspected anomaly not found (Primary Dx); Family history of congenital heart disease Discharge Disposition: Home Social History Tobacco Use Types Packs/Day Years Used Date Smoking Tobacco: Every Day Cigarettes Alcohol Use Standard Drinks/Week Comments No 0 (1 standard drink = 0.6 oz pur e alcohol) Comments Yes Sex and Gender Information Value Date Recorded Sex Assigned at Not on file Gender Identity Not on file Sexual Orientation Not on file documented as of this encounter Progress Notes * Jesica Chew MD - 03/06/2011 10:43 AM EST Diagnosis/Maternal Medicine Consult Note Loida Powlel is a 25 y.o. female with an JEFFY of 07/19/11 who is at 20w5d gestation by ultrasound dates. She is referred at the request of Susanne Duarte CNM for evaluation of a ultrasound abnormality. She was seen today for maternal- medicine consultation, ultrasound evaluationand genetic counseling with Julian Bautista. The patient reports an uncomplicated other than a hospitalization for gastroenteritis. The patient has had a quad screen this predicting risk of trisomy 21 at 1:1510, trisomy 18 at 1:10,000 and open neural tube defect at 1:21067. An ultrasound examination on 02/19/11 found the question of echogenic bowel. Past Medical History Diagnosis Date ??? Depresssion as a teenager Past Surgical History Procedure Date ??? section 2005 OB History Grav Para Term Abortions TAB SAB Ect Mult Living 3 1 1 1 1 1 # Outc Date GA Lbr Lewis/2nd Wgt Sex Del Anes PTL Lv 1 PRE 2005 35w6d 2.537kg(5lb9.5oz) M CS Yes 2 SAB 2009 6w0d 3 CUR Family History Problem Relation Age of Onset ??? Heart Defect Son ??? Defects Son ??? Congenital Anomalies Paternal Grandmother transverse terminal limb defect (left arm below elbow) ??? Uterine Cancer Mother ??? Hypertension Mother ??? HIV Father Social History Occupational History ??? Not on file. Social History Main Topics ??? Smoking status: Current Everyday Smoker -- 0.3 packs/day ??? Smokeless tobacco: Not on file ??? Alcohol Use: No ??? Drug Use: No ??? Sexually Active: Not on file Current outpatient prescriptions Medication Sig Dispense Refill ??? Mdxvvpwf-Ir-Wed-Fe-FA ( VITAMIN) Tab Take by mouth. ??? ONDANSETRON HCL (ZOFRAN ORAL) Take by mouth. No Known Allergies Record Review No additional issues Review of Systems Constitutional:no weight loss, fever, night sweats Eyes: negative Ears Nose Throat:negative positive for - nasal congestion Respiratory: positive for - cough Cardiac: negative Gastrointestinal: Normal BM's, denies hematochezia, melena or pain., Denies nausea, vomiting or diarrhea. Genitourinary: Negative for dysuria Musculoskeletal: negative Skin: negative Psychiatric: Negative for anxiety Endocrine:negative Contractions: none Leaking: None Bleeding: none now Physical Exam Last Set of Vitals: LMP 10/04/2010 General: alert, well appearing, in no apparent distress HEENT: normocephalic, atraumatic Extremities: no redness or tenderness in the calves or thighs, no edema Neurologic:alert, oriented, normal speech, no focal findings or movement disorder noted Abdomen: abdomen is soft without significant tenderness, masses, organomegaly or guarding. Psychiatric: Affect is Appropriate. Uterine Size: S=D Ultrasound Growth appropriate for gestational age EFW 462 grams EGA 21 2/7 weeks Amniotic fluid volume normal Placenta anterior Presentation breech Morphology There is no evidence for pathologically significant echogenic bowel. Assessment and Recommendations: 25 y.o. female at 20w5d weeks' gestation. Today's sonogram has no findings worrisome for a structural abnormality, infection or aneuploidy. The patient was counseled as to her risk of aneuploidy and the possibility of definitive diagnosis byamniocentesis. Issues discussed include limitation of information provided, risk of loss of and delay to diagnosis. Amniocentesis will not diagnose cerebral palsy, autism, learning disabilities or single gene defects. The patient has chosen not to have an amniocentesis. As she has a child with structural heart disease, I recommend a echocardiogram which we will help the patient schedule. I appreciate the opportunity to be involved in this patient's care, and am available if further questions should arise. Jesica Chew MD 03/06/2011 documented in this encounter Plan of Treatment Not on file documented as of this encounter Results * Echocardiogram (03/19/2011 5:27 PM EST) Anatomical Region Laterality Modality Other 03/20/2011 Narrative 03/20/2011 10:14 AM EST Procedure: ? Pediatric Echocardiogram Patient: ? YAHAIRA TODDYCE Joseph ?(Age): 1985(25) Med Rec#: ?[id number] ? Sex: ?F ? Site Loc: ?[facility] ? Ht / Wt: ??(cm)/(kg) ? Pt. Loc: ? Echo Lab ? BSA: ? Study Date: ?03/19/2011 ? Pt. Type: Outpatient Study Quality: ?Tape: ? Referring: Jesica Chew Habilitation Specialist: Edi Bailon Diagnosis:CPT Code(s): ?? Echo Full (13383), ?? Doppler Full (29724), ??Color Doppler (63148), Indication(s): ??Family hx of CHD Rhythm: SUMMARY: 1. A echocardiogram was performed at 22 weeks gestation due to history of prior child with ventricular septal defect. ??Good quality images were obtained. ?? 2. No cardiac structural abnormalities are identified. ??Chamber sizes, ventricular function, arterial and venous connections are all normal. The Doppler exam is normal. ??No arrhythmias are noted during the exam. There is no evidence of hydrops. ??This is a normal echocardiogram. ?? 3. The limitations of echocardiography include the inability to diagnose patent ductus arteriosus, some atrial and ventricular septal defects, minor valve abnormalities and coarctation. ??No specific or cardiac follow-up is required on the basis of this study. FINDINGS: Atria And Veins ?At least one pulmonary vein from each side enters the left atrium. ?No pulmonary venous anomalies are detected. Atrioventricular Valves ?The tricuspid valve appears normal. ?The annulus measures approximately 7.3 mm. (Z-Score: 0.73). ?No tricuspid valve structural abnormality is identified. ?The mitral valve structure appears normal. ?The annulus measures approximately 7.4 mm. (Z-Score: 0.95). ?No mitral valve structural abnormality is identified. Ventricles ?The right ventricle is normal sized. ?Right ventricular systolic function is normal. ?The left ventricle is normal sized. ?Left ventricular systolic function is normal. Ventricular Septum ?The interventricular septum appears to be intact. Semilunar Valves ?No pulmonary valve structural abnormalities seen. ?The pulmonary annulus size appears normal sized. ? and measures 0.5 mm. (Z-Score: 1.70). ?No aortic valve structural abnormalities seen. ?The aortic annulus size appears normal. ? and measures approximately 4 mm. (Z-Score: 1.29). Great Vessels ?The great arteries appear normally related. ?The main pulmonary artery appears normal sized. ?The right pulmonary artery appears normal sized. ?The left pulmonary artery appears normal sized. ?The aortic arch appears to be intact. ?The ascending aorta is normal sized. ? measuring 4.3 mm. (Z-Score: 0.83). ?The aortic isthmus is normal sized. ?measuring 3.4 mm. (Z-Score: 1.4). ?The descending aorta is normal sized. Effusion ?There is no evidence of a pericardial effusion. ?No evidence of hydrops. All Z scores are estimated This report has been electronically signed by: Maycol ??Katiana Andrade MD ? 03/20/2011 10:14:08 Images reviewed and interpretation verified [facility] Cardiac Ultrasound Laboratory Procedure Note Maycol Andrade MD - 03/20/2011 Procedure: Pediatric Echocardiogram Patient: YAHAIRA Ruiz (Age): 1985(25) Med Rec#: [id number] Sex: F Site Loc: [facility] Ht / Wt: (cm)/(kg) Pt. Loc: Echo Lab BSA: Study Date: 03/19/2011 Pt. Type: Outpatient Study Quality: Tape: Referring: Jesica Chew Habilitation Specialist: Edi Bailon Diagnosis:CPT Code(s): Echo Full (48056), Doppler Full (99819), Color Doppler (64961), Indication(s): Family hx of CHD Rhythm: SUMMARY: 1. A echocardiogram was performed at 22 weeks gestation due to history of prior child with ventricular septal defect. Good quality images were obtained. 2. No cardiac structural abnormalities are identified. Chamber sizes, ventricular function, arterial and venous connections are all normal. The Doppler exam is normal. No arrhythmias are noted during the exam. There is no evidence of hydrops. This is a normal echocardiogram. 3. The limitations of echocardiography include the inability to diagnose patent ductus arteriosus, some atrial and ventricular septal defects, minor valve abnormalities and coarctation. No specific or cardiac follow-up is required on the basis of this study. FINDINGS: Atria And Veins At least one pulmonary vein from each side enters the left atrium. No pulmonary venous anomalies are detected. Atrioventricular Valves The tricuspid valve appears normal. The annulus measures approximately 7.3 mm. (Z-Score: 0.73). No tricuspid valve structural abnormality is identified. The mitral valve structure appears normal. The annulus measures approximately 7.4 mm. (Z-Score: 0.95). No mitral valve structural abnormality is identified. Ventricles The right ventricle is normal sized. Right ventricular systolic function is normal. The left ventricle is normal sized. Left ventricular systolic function is normal. Ventricular Septum The interventricular septum appears to be intact. Semilunar Valves No pulmonary valve structural abnormalities seen. The pulmonary annulus size appears normal sized. and measures 0.5 mm. (Z-Score: 1.70). No aortic valve structural abnormalities seen. The aortic annulus size appears normal. and measures approximately 4 mm. (Z-Score: 1.29). Great Vessels The great arteries appear normally related. The main pulmonary artery appears normal sized. The right pulmonary artery appears normal sized. The left pulmonary artery appears normal sized. The aortic arch appears to be intact. The ascending aorta is normal sized. measuring 4.3 mm. (Z-Score: 0.83). The aortic isthmus is normal sized. measuring 3.4 mm. (Z-Score: 1.4). The descending aorta is normal sized. Effusion There is no evidence of a pericardial effusion. No evidence of hydrops. All Z scores are estimated This report has been electronically signed by: Maycol Andrade MD 03/20/2011 10:14:08 Images reviewed and interpretation verified [facility] Cardiac Ultrasound Laboratory Jesica Chew MD ECHO ORDERABLES documented in this encounter Visit Diagnoses Diagnosis Suspected anomaly not found- Primary Family history of congenital heart disease Family history of congenital anomalies Suspected anomaly not found documented in this encounter Care Teams Inspector Fuel Hose Relationship Specialty Start Date End Date None None PCP - General 02/28/11 06/06/15 documented as of this encounter
--- OUTSIDE RECORDS SUMMARY | 2024-01-20 14:40 | XMS_ITS | Clinical Summary ---
Author Organization [facility] Address [address] [place] [address] Care Team Providers Care Bi Developer Name Role Phone Jazmyn Wang APRN Primary Care Provider [phone] Social History Tobacco Use Types Packs/Day Years Used Date Smoking Tobacco: Never Assessed Interpersonal Safety Answer Date Record ed Physically Hurt Never 11/22/2019 Verbally Threaten Not on file 11/22/2019 Sex and Gender Information Value Date Recorded Sex Assigned at Not on file Gender Identity Not on file Sexual Orientation Not on file Plan of Treatment Health Maintenance Due Date Last Done Comments Hepatitis C Screen 1985 Hepatitis B Vaccine (1 of 3 - 19+ 3-dose series) 03/29 COVID-19 Vaccine ( season) 2022 Care Teams Bi Developer Relationship Specialty Start Date End Date Jazmyn Wang APRN [facility] [address] [place] [address] PCP - General 12/21/21
--- OUTSIDE RECORDS SUMMARY | 2024-01-20 14:40 | XMS_ITS | Encounter Summary ---
Author Organization [facility] Address [address] [place] [address] Care Team Providers Care Rubber Grinder Name Role Phone Diamond De La Torre MERT Primary Care Provider [phone] Encounter Details Date Type Department Care Team (Late st Contact Info) Description 02/20/2019 Results Only [facility] [phone] José Miguel Hale MD [address] [place] [id number] Social History Tobacco Use Types Packs/Day Years Used Date Smoking Tobacco: Never Assessed Sex and Gender Information Value Date Recorded Sex Assigned at Not on file Gender Identity Not on file Sexual Orientation Not on file documented as of this encounter Plan of Treatment Not on file documented as of this encounter Procedures Procedure Name Priority Date/Time Associated Diagnosis Comments SURGICAL PATHOLOGY Routine 02/20/2019 18 :03 EDT documented in this encounter Results * SURGICAL PATHOLOGY (02/20/2019 18:03 EDT) Pathology Report: SURGICAL PATHOLOGY REPORT Reports generated via electronic interface contain original data; however they are lacking the format of the original report. Caution should be taken when reading/interpreti ng unformatted reports. Name: ? YAHAIRA, LOIDA ? Accession #: ? [id number] ? : ? 1985 (Age: 33) ??F ? Collect Date: ? 02/20/2019 ? Location: ? [facility] ? Receive Date: ? 02/23/2019 ? Provider: JOSÉ MIGUEL HALE MD Copy to: ? Final Pathologic Diagnosis: A. ??CERVIX, COLD KNIFE CONIZATION: - High grade squamous intraepithelial lesion (LORI II). - Margins negative for squamous intraepithelial lesion. B. ??ENDOCERVIX, CURETTAGE: - Benign endocervical tissue and proliferative endometrium. C. ??ENDOMETRIUM, CURETTAGE: - Proliferative endometrium. - Fragments of smooth muscle. - Benign endocervical tissue. Document reviewed and electronically signed by: KYUNG FULLER MD Report ??Date: 02/25/2019 15:39 By the signature above, the attending physician certifies that he/she has personally conducted a gross and/or microscopic examination of the described specimens and rendered or confirmed the above diagnosis. Specimen(s) Received: A. ??Cervical cone biopsy B. ??Endocervical curettings C. ??Endometrial curettings Clinical History: Clinical diagnosis code: ??N92.0, D21.9, N87.1 Gross Description: A. ?Received in formalin labelled with proper patient identification (initials B. K) and cervical cone is an unoriented ovoid piece of cervix, transected at one edge with zhou white margins (1.5 x1.4 cm, excised to a depth of 1.1 cm), there is not a complete cervical OS as the specimen is transected at one edge. One aspect of the specimen is surfaced by zhou white ectocervical mucosa, with focal hemorrhage. The ectocervical margins are inked black ??and the endocervical margins are inked blue . The specimen is radially sectioned in a clockwise fashion and entirely submitted as A1-A4. B. ?Received in formalin labelled with proper patient identification (initials B, K) and endocervical curettage is an aggregate of zhou pink tissue (0.3 x0.2 x 0.1 cm). Submitted entirely in B1. C. ?Received in formalin labelled with proper patient identification (initials B, K) and endometrial curettage is an aggregate of zhou pink tissue (4.5 x 3.5 x 1.1 cm). Submitted entirely in C1-C4. Dr. Cheema 02/24/2019 4:34 PM End of Report [facility] 02/20/2019 18:0 3 EDT 02/23/2019 18:03 EST José Miguel Hale MD PATHOLOGY ORDERABL ES [facility] [address] [place] [address] documented in this encounter Visit Diagnoses Not on filedocumented in this encounter Care Teams Rubber Grinder Relationship Specialty Start Date End Date Diamond De La Torre FNP [address] [place], [place] [id number] PCP - General 07/16/11 12/20/21 documented as of this encounter
--- OUTSIDE RECORDS SUMMARY | 2024-01-20 14:40 | XMS_ITS | Encounter Summary ---
Author Organization [facility] Address [address] [place] [address] Care Team Providers Care Offset Printing Operator Name Role Phone Kylie De La Torre MERT Primary Care Provider Encounter Details Date Type Department Care Team (Late st Contact Info) Description 08/24/2011 Results Only [facility] [phone] Jitendra Calle MD [address] [place] [address] Social History Tobacco Use Types Packs/Day Years [...] Diagnosis Comments PAP TEST- RESULT ONLY Routine 08/24/2011 0:00 EDT documented in this encounter Results * PAP TEST- RESULT ONLY (08/24/2011 0:00 EDT) Pathology Report: CYTOPATHOLOGY REPORT Reports generated via electronic interface contain original data; however they are lacking the format of the original report. Caution should be taken when reading/interpreti ng unformatted reports. Name: ? LOIDA SYED ? Accession #: ? [id number] : ? 1985 (Age: 26) ??F ?Collect Date: ? 08/24/2011 Location: ? [facility] ? Receive Date: ? 08/27/2011 Provider: ?JITENDRA CALLE MD Copy to: ?KYLIE PAINTING ? Specimen/Source: ?Pap Test, Cervix/Endocervix, ThinPrep Imaging System with manual evaluation Last Menstrual Period: ? Menstrual/Pregnanc y Status: ? Post Hormonal/Contracep tive Status: ? Tubal ligation: bilateral Previous Gynecologic Pathology: ? LSIL: 12/05/10 ? SPECIMEN ADEQUACY ? Satisfactory for Evaluation - transformation zone component present GENERAL CATEGORIZATION ? Epithelial Cell Abnormality INTERPRETATION ? Squamous Cell Abnormality - Low grade squamous intraepithelial lesion (LSIL). EDUCATIONAL NOTES/RECOMMENDATI ONS ? [facility] recommends following the 2006 Consensus Guidelines for the Management of Women with Abnormal Cervical Cancer Screening Tests (JLGTD, 2007;11(4):201-222 ). ??Consensus guidelines are available online at www.ASCCP.org. ? Document reviewed and electronically signed by: ? NGA LEZAMA MD [facility] ? Report Date: ??09/03/2011 15:57 End of Report [facility] 08/24/2011 08/27/2011 Jitendra Calle MD PATHOLOGY ORDERABLES Performing Organization Address City/State/[facility] Co de Phone Number [facility] [address] [place] [address] documented in this encounter Visit Diagnoses Not on filedocumented in this encounter Care Teams Offset Printing Operator Relationship Specialty Start Date End Date Kylie De La Torre FNP [address] [place] [address] PCP - General 07/16/11 12/20/21 documented as of this encounter
--- OUTSIDE RECORDS SUMMARY | 2024-01-20 14:40 | XMS_ITS | Encounter Summary ---
Author Organization [facility] Address [address] [place] [address] Care Team Providers Care Pigment Processor Name Role Phone Kylie De La Torre MERT Primary Care Provider [phone] Encounter Details Date Type Department Care Team (Late st Contact Info) Description 03/10/2014 Results Only [facility]- [facility] [phone] Deepak Sosa, DO [address] [place] [address] Social History Tobacco Use Types Packs/Day Years Used Date Smoking Tobacco: Never Assessed Sex and Gender Information Value Date Recorded Sex Assigned at Not on file Gender Identity Not on file Sexual Orientation Not on file documented as of this encounter Plan of Treatment Not on file documented as of this encounter Procedures Procedure Name Priority Date/Time Associated Diagnosis Comments SURGICAL PATHOLOGY Routine 03/10/2014 22 :37 EST documented in this encounter Results * SURGICAL PATHOLOGY (03/10/2014 22:37 EST) Pathology Report: SURGICAL PATHOLOGY REPORT Reports generated via electronic interface contain original data; however they are lacking the format of the original report. Caution should be taken when reading/interpreti ng unformatted reports. Name: ? LOIDA SYED ? Accession #: ? [id number] ? : ? 1985 (Age: 28) ??F ? Collect Date: ? 03/10/2014 ? Location: ? [facility] ? Receive Date: ? 03/10/2014 ? Provider: DEEPAK SOSA DO Copy to: KYLIE PAINTING ? Final Pathologic Diagnosis: SOFT TISSUE, LEFT WRIST, CYST , EXCISION: - Dense fibroconnective tissue with no epithelial lining consistent with ganglion cyst. Document reviewed and electronically signed by: KLEBER LAIRD MD Report ??Date: 03/12/2014 15:27 By the signature above, the attending physician certifies that he/she has personally conducted a gross and/or microscopic examination of the described specimens and rendered or confirmed the above diagnosis. Specimen(s) Received: Ganglion cyst left wrist Clinical History: Cyst Lt wrist Gross Description: ? Received in formalin labelled with proper patient identification (initials B, K) and ganglion cyst left wrist is a reis-white previously incised cystic structure measuring 1.5 x 0.6 x 0.4 cm. ??The cut surfaces reveal a 0.8 cm in greatest dimension smooth to wrinkled cystic structure. ??The specimen is inked, longitudinally bisected, and is entirely submitted as 1. Darlin Mchugh 03/11/2014 08:40 AM End of Report [facility] 03/10/2014 22:3 7 EST 03/10/2014 22:37 EST Deepak Sosa DO PATHOLOGY ORDERABLES [facility] [address] [place] [address] documented in this encounter Visit Diagnoses Not on filedocumented in this encounter Care Teams Pigment Processor Relationship Specialty Start Date End Date Kylie De La Torre FNP [address] [place] [address] PCP - General 07/16/11 12/20/21 documented as of this encounter
--- OUTSIDE RECORDS SUMMARY | 2024-01-20 14:40 | XMS_ITS | Encounter Summary ---
Author Organization [facility] Address [address] [place] [address] Care Team Providers Care Social Insurance Administrator Name Role Phone Kylie De La Torre MERT Primary Care Provider [phone] Encounter Details Date Type Department Care Team (Late st Contact Info) Description 05/19/2013 Results Only [facility]- [facility] [phone] Jitendra Calle MD [address] [place] [address] Social History Tobacco Use Types Packs/Day Years Used Date Smoking Tobacco: Never Assessed Sex and Gender Information Value Date Recorded Sex Assigned at Not on file Gender Identity Not on file Sexual Orientation Not on file documented as of this encounter Plan of Treatment Not on file documented as of this encounter Procedures Procedure Name Priority Date/Time Associated Diagnosis Comments SURGICAL PATHOLOGY Routine 05/19/2013 9:00 EST PAP TEST- RESULT ONLY Routine 05/19/2013 0:00 EST documented in this encounter Results * SURGICAL PATHOLOGY (05/19/2013 9:00 EST) Pathology Report: SURGICAL PATHOLOGY REPORT Reports generated via electronic interface contain original data; however they are lacking the format of the original report. Caution should be taken when reading/interpreting unformatted reports. Name: ? LOIDA SYED ? Accession #: ? [id number] ? : ? 1985 (Age: 28) ??F ? Collect Date: ? 05/19/2013 ? Location: ? [facility] ? Receive Date: ? 05/20/2013 ? Provider: JITENDRA CALLE MD Copy to: KYLIEOMAR DE LA TORRE EMISSIONS TESTING AND REPAIR TECHNICIAN ? Final Pathologic Diagnosis: A. ENDOCERVIX, CURETTAGE: - ??Benign endocervical tissue. B. ECTOCERVIX, 6:00, BIOPSY: - ??Reactive squamous metaplasia with acute cervicitis. See comment. - ??No dysplasia identified. Comment: Deeper levels have been examined on specimens (A) and (B). Electrical Engineering Teacher sections of this case were reviewed at the intradepartmental consultation conference. ?? Document reviewed and electronically signed by: NUHA RIZVI MD Report ??Date: 05/26/2013 17:20 By the signature above, the attending physician certifies that he/she has personally conducted a gross and/or microscopic examination of the described specimens and rendered or confirmed the above diagnosis. Specimen(s) Received: A. ??ECC B. ??Ectocervix 6 o'clock position Clinical History: LSIL, persistent (+) HR HPV Gross Description: A. ?Received in formalin labelled with proper patient identification (initials B, K) and ECC is an aggregate of blood tinged mucus and light zhou tissues (2 cc). Submitted in toto in block A1. B. ?Received in formalin labelled with proper patient identification (initials B, K) and ectocervix 6 o'clock pos is a single zhou-white tissue fragment (0.4 x 0.3 x 0.2 cm). Submitted intact in block B1. Soo Sparrow 05/20/2013 10:14 AM End of Report [facility] 05/19/2013 9:00 EST 05/20/2013 9:00 EST Jitendra Calle MD PATHOLOGY ORDERABLES [facility] [address] [place] [address] * PAP TEST- RESULT ONLY (05/19/2013 0:00 EST) Pathology Report: CYTOPATHOLOGY REPORT Reports generated via electronic interface contain original data; however they are lacking the format of the original report. Caution should be taken when reading/interpreti ng unformatted reports. Name: ? YAHAIRA LOIDA ? Accession #: ? [id number] : ? 1985 (Age: 28) ??F ?Collect Date: ? 05/19/2013 Location: ? [facility] ? Receive Date: ? 05/20/2013 Provider: ?JITENDRA CALLE MD Copy to: ?KYLIE DE LA TORRE EMISSIONS TESTING AND REPAIR TECHNICIAN ? Specimen/Source: ?Pap Test, Cervix/Endocervix, ThinPrep Imaging System with manual evaluation Last Menstrual Period: ? Previous Gynecologic Pathology: ? LSIL HPV: + HR persistent ? SPECIMEN ADEQUACY ? Satisfactory for Evaluation - transformation zone component present GENERAL CATEGORIZATION ? Negative for Intraepithelial Lesion or Malignancy ? Document reviewed and electronically signed by: ? SHADE Meng(ASCP) ? Report Date: ??05/25/2013 10:11 End of Report [facility] 05/19/2013 05/20/2013 Jitnedra Calle MD PATHOLOGY ORDERABLES [facility] [address] [place] [address] documented in this encounter Visit Diagnoses Not on filedocumented in this encounter Care Teams Social Insurance Administrator Relationship Specialty Start Date End Date Kylie De La Torre FNP [address] [place], [place] [id number] PCP - General 07/16/11 12/20/21 documented as of this encounter
--- OUTSIDE RECORDS SUMMARY | 2024-01-20 14:40 | XMS_ITS | Encounter Summary ---
Author Organization [facility] Address [address] [place] [address] Care Team Providers Care International Logistics Coordinator Name Role Phone Diamond De La Torre MERT Primary Care Provider Jazmyn Wang APRN Primary Care Provider [phone] Encounter Details Date Type Department Care Team (Late st Contact Info) Description 11/26/2020 Lab Requisition [facility]ology & [facility] - [facility] [address] [place], [place] [address] Outr Resulting Lab, Provider Social History Tobacco Use Types Packs/Day Years [...] Procedure Name Priority Date/Time Associated Diagnosis Comments ANTI NUCLEAR AB (PETER), IFA Routine 11/25/2020 16:25 EDT documented in this encounter Results * ANTI NUCLEAR AB (PETER), IFA (11/25/2020 16:25 EDT) PETER Interpretation Negative Negative 2020 14:54 EDT [facility] Comment:No titer performed, PETER Screen is negative. Blood VENOUS BLOOD / Unknown 11/25/2020 16:25 EDT 11/27/2020 15:33 EDT Narrative [facility] - 11/28/2020 14:54 EDT Results were obtained with the TrovixVA NOVA Lite HEp-2 PETER Kit by indirect immunofluorescence. Provider Outr Resulting Lab IMMUNOLOGY A ND SEROLOGY ORDERABLES Performing Organization Address City/State/[facility] Co de Phone Number [facility] [address] [place] [address] documented in this encounter Visit Diagnoses Not on filedocumented in this encounter Care Teams International Logistics Coordinator Relationship Specialty Start Date End Date Diamond De La Torre FNP [address] [place] [address] PCP - General 07/16/11 12/20/21 Jazmyn Wang APRN [address] [place] [address] PCP - General 12/21/21 documented as of this encounter
--- OUTSIDE RECORDS SUMMARY | 2024-01-20 14:40 | XMS_ITS | Encounter Summary ---
Author Organization [facility] Address [address] [place] [address] Care Team Providers Care Medical Service Representative Name Role Phone Diamond De La Torre Primary Care Provider [phone] Encounter Details Date Type Department Care Team (Latest Contact Info) Description 01/27/2019 9:15 EDT - 01/27/2019 23:59 EDT Hospital Encounter [address] [address] Unknown, Provider, Discharge Disposition: Auto Discharge Social History Tobacco Use Types Packs/Day Years Used Date Smoking Tobacco: Never Assessed Sex and Gender Information Value Date Recorded Sex Assigned at Not on file Gender Identity Not on file Sexual Orientation Not on file documented as of this encounter Discharge Disposition Disposition Code Departure Means Destination Auto Discharge Home documented in this encounter Plan of Treatment Not on file documented as of this encounter Visit Diagnoses Not on filedocumented in this encounter Care Teams Medical Service Representative Relationship Specialty Start Date End Date Diamond De La Torre FNP [address] [place] [address] PCP - General 07/16/11 12/20/21 documented as of this encounter
--- OUTSIDE RECORDS SUMMARY | 2024-01-20 14:40 | XMS_ITS | Encounter Summary ---
[place] [address] Care Team Providers Care Epic Ambulatory Specialists Name Role Phone None Primary Care Provider Unavailabl e Encounter Details Date Type Department Care Team (Latest Contact Info) Description 03/19/2011 12:50 PM EST - 03/19/2011 11:59 PM EST Hospital Encounter Non-[place] [address] CARDIO, ECHO SIXTY MIN APPT None Jesica Chew MD [facility] [address] OBSTET[place] [address] Suspected anomaly not found Discharge Disposition: Home Social History Tobacco Use Types Packs/Day Years Used Date Smoking Tobacco: Every Day Cigarettes Alcohol Use Standard Drinks/Week Comments No 0 (1 standard drink = 0.6 oz pur e alcohol) Comments Yes Sex and Gender Information Value Date Recorded Sex Assigned at Not on file Gender Identity Not on file Sexual Orientation Not on file documented as of this encounter Medications at Time of Discharge Medication Sig Dispensed Refills Start Date End Date Zixbggev-Ju-Zha-Fe-FA ( VITAMIN) Tab Take by mouth. ONDANSETRON HCL (ZOFRAN ORAL) Take by mouth. 06/14/2015 documented as of this encounter Plan of Treatment Not on file documented as of this encounter Procedures Procedure Name Priority Date/Time Associated Diagnosis Comments ECHOCARDIOGRAM Routine 03/19/2011 5:27 PM EST Suspected anomaly not found documented in this encounter Results * Echocardiogram (03/19/2011 5:27 PM EST) Anatomical Region Laterality Modality Other 03/20/2011 Narrative 03/20/2011 10:14 AM EST Procedure: ? Pediatric Echocardiogram Patient: ? YAHAIRA Ruiz ?(Age): 1985(25) Med Rec#: ?[id number] ? Sex: ?F ? Site Loc: ?[facility] ? Ht / Wt: ??(cm)/(kg) ? Pt. Loc: ? Echo Lab ? BSA: ? Study Date: ?03/19/2011 ? Pt. Type: Outpatient Study Quality: ?Tape: ? Referring: Jesica Chew Hairspring Studder: Edi Bailon Diagnosis:CPT Code(s): ?? Echo Full (45841), ?? Doppler Full (21502), ??Color Doppler (35320), Indication(s): ??Family hx of CHD Rhythm: SUMMARY: [...] report has been electronically signed by: Maycol ??Staci. Raymond NICOLE ? 03/20/2011 10:14:08 Images reviewed and interpretation verified [facility] Cardiac Ultrasound Laboratory Procedure Note Maycol Andrade MD - 03/20/2011 Procedure: Pediatric Echocardiogram Patient: YAHAIRA Ruiz (Age): 1985(25) Med Rec#: [id number] Sex: F Site Loc: [facility] Ht / Wt: (cm)/(kg) Pt. Loc: Echo Lab BSA: Study Date: 03/19/2011 Pt. Type: Outpatient Study Quality: Tape: Referring: Jesica Chew Hairspring Studder: Edi Bailon Diagnosis:CPT Code(s): Echo Full (66902), Doppler Full (30307), Color Doppler (02484), Indication(s): Family hx of CHD Rhythm: SUMMARY: [...] 03/20/2011 10:14:08 Images reviewed and interpretation verified [facility] Cardiac Ultrasound Laboratory Jesica Chew MD ECHO ORDERABLES documented in this encounter Visit Diagnoses Diagnosis Suspected anomaly not found documented in this encounter Care Teams Epic Ambulatory Specialists Relationship Specialty Start Date End Date None None PCP - General 02/28/11 06/06/15 documented as of this encounter
--- OUTSIDE RECORDS SUMMARY | 2024-01-20 14:40 | XMS_ITS | Encounter Summary ---
[place] [address] Care Team Providers Care Drying Tunnel Operator Name Role Phone None Primary Care Provider Unavailabl e Encounter Details Date Type Department Care Team (Late st Contact Info) Description 03/06/2011 8:09 AM EST - 03/06/2011 11:59 PM EST Hospital En[place] [address] Social History Tobacco Use Types Packs/Day Years [...] Sig Dispensed Refills Start Date End Date Gzkhpzgy-Cd-Yvu-Fe-FA ( VITAMIN) Tab Take by mouth. ONDANSETRON HCL (ZOFRAN ORAL) Take by mouth. 06/14/2015 documented as of this encounter Plan of Treatment Not on file documented as of this encounter Procedures Procedure Name Priority Date/Time Associated Diagnosis Comments US OB DETAILED MORPHOLOGY Routine 03/06/2011 10:21 AM EST documented in this encounter Results * US OB TARGETED MORPHOLOGY (03/06/2011 10:21 AM EST) Anatomical Region Laterality Modality Pelvis, Abdomen Ultrasound 03/06/2011 10:2 1 AM EST Narrative 03/06/2011 10:49 AM EST ?OBSTETRICS REPORT ? (Signed Final 03/06/2011 10:48 am) Patient Info ID: ? [id number] ? : ?? [birth year] (25 yrs) Name: ? LOIDA SYED ? Visit Date: ??03/06/2011 10:07 am Performed By Performed By: ?? Maria Alejandra Ghosh Attending: ?Jeevan NICOLE, Jesica Cook Referred By: ?JAYESH VERGARA Accession#: ? [id number] OB History BMI: ?24.51 Service(s) Provided [facility] - Targeted Morphology - Genetics - ? [id number] Indications Morphology scan Echogenic Bowel Evaluation Num Of Fetuses: ?1 Heart Rate: ??150 ?bpm Cardiac Activity: ??Observed, normal rhythm Presentation: ?Breech Placenta: ?Anterior P. Cord Insertion: Within Normal Limits Amniotic Fluid ANABELA FV: ?Within normal limits -------- Biometry -------- BPD: ?47.2 ??m ? G. Age: ?? 20w 2d ? m OFD: ?68.8 ??m ? m HC: ?186.8 ??m ? G. Age: ?? 21w 0d ? m AC: ?183.2 ??m ? G. Age: ?? 23w 1d ? m FL: ? 34.5 ??m ? G. Age: ?? 20w 6d ? m HUM: ?36.5 ??m ? G. Age: ?? 22w 5d ? m CER: ?22.7 ??m ? G. Age: ?? 21w 2d ? m CI: ?68.6 ??% ? 70 - 86 FL/HC: ? 18.5 ??% ? 15.9 - 20.3 HC/AC: ? 1.02 ?1.06 - 1.25 FL/BPD: ?73.1 ??% FL/AC: ? 18.8 ??% ? 20 - 24 Est. FW: ? 462 ?? gm ?1 lb Gestational Age LMP: ? 21w 6d ?Date: ?? 10/04/10 ? JEFFY: ?? 07/11/11 Clinical ? 21w 4d ? JEFFY: ?? 07/13/11 JEFFY: U/S Today: ? 21w 2d ? JEFFY: ?? 07/15/11 Best: ?20w 5d ?? Det. By: ?? U/S C R L ?JEFFY: ?? 07/19/11 ?(11/28/10) Targeted Anatomy Central Nervous System Calvarium: ?Within Normal Limits Intracranial: ? Within Normal Limits Lat. Ventricles: ?Within Normal Limits Cerebellum: ? Within Normal Limits Choroid Plexus: ? Within Normal Limits Cisterna Magna: ? Within Normal Limits Spine Cervical: ? Visualized Thoracic: ? Visualized Lumbar: ? Visualized Sacral: ? Visualized Head/Neck Face: ? Within Normal Limits Lips: ? Upper Lip Appears Intact Nuchal Fold: ?Within Normal Limits Thorax Four Chamber: ? Within Normal Limits Cardiac Motion: ? Normal Rhythm R Outflow Tract: ?Visualized L Outflow Tract: ?Visualized Cardiac [place]: ? Visualized Diaphragm: ?Visualized Abdomen Ventral Wall: ? Visualized Stomach: ?Visualized Lt Kidney: ?Visualized Rt Kidney: ?Visualized Bladder: ?Visualized Extremities Lt Humerus: ? Visualized Rt Humerus: ? Visualized Lt Forearm: ? Visualized Rt Forearm: ? Visualized Lt Hand: ?Visualized Rt Hand: ?Visualized Lt Femur: ? Visualized Rt Femur: ? Visualized Lt Lower Leg: ? Visualized Rt Lower Leg: ? Visualized Lt Foot: ?Visualized Rt Foot: ?Visualized Other Umbilical Cord: ? 3 vessel cord Cord Insertion: ? WIthin Normal Limits Comment: ? Nasal Bone: Visualized Cervix Uterus Adnexa Left Ovary: ?Not visualized Right Ovary: ?? Not visualized Impression 2nd Trimester - Targeted Morphology- Summary Single intrauterine with a gestational age of 20w 5d based on CRL. Composite age based on the current ultrasound alone is 21w 2d. Current growth parameters are consistent indicating normal growth. Amniotic fluid volume is within normal limits. Detailed anatomic evaluation was performed and no structural abnormalities are noted. I ??viewed the images and agree with the above interpretation. Thank you for allowing us to participate in the care of LOIDA SYED. Please do not hesitate to call if you have any questions. ? Jesica Chew MD Electronically Signed Final Report ?? 03/06/2011 10:48 am Procedure Note Jesica Chew MD - 03/06/2011 OBSTETRICS REPORT (Signed Final 03/06/2011 10:48 am) Patient Info ID: [id number] : [birth year] (25 yrs) Name: LOIDA SYED Visit Date: 03/06/2011 10:07 am Performed By Performed By: Maria Alejandra Ghosh [facility] Attending: Jesica Chew MD Referred By: JAYESH SALINAS [facility] OB History BMI: 24.51 Service(s) Provided [facility] - Targeted Morphology - Genetics - [id number] Indications Morphology scan Echogenic Bowel Evaluation Num Of Fetuses: 1 Heart Rate: 150 bpm Cardiac Activity: Observed, normal rhythm Presentation: Breech Placenta: Anterior P. Cord Insertion: Within Normal Limits Amniotic Fluid ANABELA FV: Within normal limits -------- Biometry -------- BPD: 47.2 m G. Age: 20w 2d m OFD: 68.8 m m HC: 186.8 m G. Age: 21w 0d m AC: 183.2 m G. Age: 23w 1d m FL: 34.5 m G. Age: 20w 6d m HUM: 36.5 m G. Age: 22w 5d m CER: 22.7 m G. Age: 21w 2d m CI: 68.6 % 70 - 86 FL/HC: 18.5 % 15.9 - 20.3 HC/AC: 1.02 1.06 - 1.25 FL/BPD: 73.1 % FL/AC: 18.8 % 20 - 24 Est. FW: 462 gm 1 lb Gestational Age LMP: 21w 6d Date: 10/04/10 JEFFY: 07/11/11 Clinical 21w 4d JEFFY: 07/13/11 JEFFY: U/S Today: 21w 2d JEFFY: 07/15/11 Best: 20w 5d Det. By: U/S C R L JEFFY: 07/19/11 (11/28/10) Targeted Anatomy Central Nervous System Calvarium: Within Normal Limits Intracranial: Within Normal Limits Lat. Ventricles: Within Normal Limits Cerebellum: Within Normal Limits Choroid Plexus: Within Normal Limits Cisterna Magna: Within Normal Limits Spine Cervical: Visualized Thoracic: Visualized Lumbar: Visualized Sacral: Visualized Head/Neck Face: Within Normal Limits Lips: Upper Lip Appears Intact Nuchal Fold: Within Normal Limits Thorax Four Chamber: Within Normal Limits Cardiac Motion: Normal Rhythm R Outflow Tract: Visualized L Outflow Tract: Visualized Cardiac [place]: Visualized Diaphragm: Visualized Abdomen Ventral Wall: Visualized Stomach: Visualized Lt Kidney: Visualized Rt Kidney: Visualized Bladder: Visualized Extremities Lt Humerus: Visualized Rt Humerus: Visualized Lt Forearm: Visualized Rt Forearm: Visualized Lt Hand: Visualized Rt Hand: Visualized Lt Femur: Visualized Rt Femur: Visualized Lt Lower Leg: Visualized Rt Lower Leg: Visualized Lt Foot: Visualized Rt Foot: Visualized Other Umbilical Cord: 3 vessel cord Cord Insertion: WIthin Normal Limits Comment: Nasal Bone: Visualized Cervix Uterus Adnexa Left Ovary: Not visualized Right Ovary: Not visualized Impression 2nd Trimester - Targeted Morphology- Summary Single intrauterine with a gestational age of 20w 5d based on CRL. Composite age based on the current ultrasound alone is 21w 2d. Current growth parameters are consistent indicating normal growth. Amniotic fluid volume is within normal limits. Detailed anatomic evaluation was performed and no structural abnormalities are noted. I viewed the images and agree with the above interpretation. Thank you for allowing us to participate in the care of LOIDA SYED. Please do not hesitate to call if you have any questions. Jesica Chew MD Electronically Signed Final Report 03/06/2011 10:48 am Susanne Duarte CN [facility] OB ORDERABLES documented in this encounter Visit Diagnoses Not on filedocumented in this encounter Care Teams Drying Tunnel Operator Relationship Specialty Start Date End Date None None PCP - General 02/28/11 06/06/15 documented as of this encounter
--- OUTSIDE RECORDS SUMMARY | 2024-01-20 14:40 | XMS_ITS | Encounter Summary ---
[place] [address] Care Team Providers Care Ent Surgeon Name Role Phone FelipeElsaJazmynkasia Siddiqui APRN Primary Care Provider [phone] Reason for Visit * Reason Comments Referral Encounter Details Date Type Department Care Team (Late st Contact Info) Description 06/14/2015 2:00 PM EST Office [place] [address] El Hayden MD [facility] [place] [address] Tyler Campbell MD [facility] [place] [address] Myalgia; Pain in joint, pain in unspecified joint; Fibromyalgia Social History Tobacco Use Types Packs/Day Years Used Date Smoking Tobacco: Every Day Cigarettes 0.5 16 Smokeless Tobacco: Never Comments:marijuana Alcohol Use Standard Drinks/Week Comments No 0 (1 standard drink = 0.6 oz pur e alcohol) Comments Yes Sex and Gender Information Value Date Recorded Sex Assigned at Not on file Gender Identity Not on file Sexual Orientation Not on file documented as of this encounter Last Filed Vital Signs Vital Sign Reading Time Taken Comments Blood Pressure 113/69 06/14/2015 1:48 PM EST Pulse 76 06/14/2015 1:48 PM EST Temperature 37.1 ??C (98.8 ??F) 06/14/2015 1:48 PM ES T Respiratory Rate - - Oxygen Saturation 98% 06/14/2015 1:48 PM EST Inhaled Oxygen Concentration - - Weight 76.7 kg (169 lb) 06/14/2015 1:48 PM EST Height 176.5 cm (5' 9.5) 06/14/2015 1:48 PM EST Body Mass Index 24.6 06/14/2015 1:48 PM EST documented in this encounter Progress Notes * El Hayden MD - 06/15/2015 8:56 AM EST I have seen the patient and reviewed the fellow's above history and I agree with the details as written. The assessment and plan were formulated in discussion with me and I agree with them as documented. Briefly, Ms. Powell has had several months of diffuse body pains, primarily in the joints. She wasfinding some benefit with high doses of ibuprofen, but as this led to bruising, that has been discontinued. She describes the pain as usually getting worse as the day progresses and generally worse with activity and better with rest. She does feel some joint swelling, but none today. She has some fatigue, but sleeps well and is consistently waking feeling refreshed. She does have some difficulty with memory and moments where she feels like she is in a fog. She does describe very cold sensitive feet and hands, but only describes color changes as a bluish discoloration, without white or red changes. Her exam reveals tenderness primarily of the small joints of the hands and feet, with few fibromyalgia tender points. She does not have any joint swelling or obvious synovitis. The inflammatory markers are normal. Assessment and Plan: This patient has a chronic pain syndrome, which probably is best diagnosed as fibromyalgia. However, there are several features that cause us to consider that this could be an early inflammatory arthritis, including the paucity of tender points, the consistently restorative sleep, and her positive response to NSAIDs. Thus, we will have her come back in 2 months to see if her d isease is changing or is manifesting more clearly as an inflammatory arthritis. For treatment, we have discussed lifestyle modifications, including stress reduction and exercise. We will also provide her with a prescription of nabumetone to take if the pain progresses, but with restrictions on how much she can take. * Tyler Campbell MD - 06/14/2015 2:14 PM EST Rheumatology outpatient consult note Reason for consult: leg pains HPI: Ms Powell is a 30 y/o female who was referred by hematology team for urgent evaluation of her genernalized body aches. Patient reports that her symptoms of generalized body aches started over an year ago and has progressively got worse over the past 3 months. She reports her pains are worse in her legs-starts as painover the lateral hips and aches along the thighs into the knees and calf muscles. Except for intermittent episodes of R knee swelling, she denies any other joint swelling or redness and localizes herpains to muscles around the shoulders, mid back and thighs. Reports swelling of hands and feet in AM which gradually get better over the day. AM stifness (hands)-5-10 min. Relieving factors- ibuprofen 600 mg every 3 hrs (cuts pain by 70-80%)- Patient had to stop taking ibuprofen due to bleeding complications (easy bruisability and hematoma which got better after stopping ibuprofen). Aleeve, tylenol, tramadol does not help. Patient denies sleep problems. Feels rested after sleep. No daytime sleepiness. Denies stress or depressed mood. ESR-10, CRP-0.28. RF neg, PETER-1:80. ROS: General (-)fevers, (-)chills, (-)night sweats, (-)wt loss/gain,(-) fatigue. HEENT (-)vision change, (-)tinnitus, (-)epistaxis, (-)sore throat, oral ulcers (-)bleeding gums, (-), (-)dry eyes, (-)dry mouth, (-)dysphagia, (-)GERD, (- )photo sensitivity, (-)Hair loss, (-)vertigo CVS (-)chest pain, (-)palpitations, (-)pedal edema, (-)PND, (-)orthopnea. Pulm (-)shortness of breath, (-)FREIRE, (-)wheezes, (-)cough, (-)pleuritic pain GI (-)N/V, (-)abdominal pain, (-)emesis, (-)hematemesis, (-)hematochezia, (- )change in appetite, (-) diahrrea. (-)hematuria, (-)dysuria, (-)frequency, (-)nocturia, (-)genital ulcers MS As above Endo (-)thyroid disorders, (-)diabetes, (-)temperature intolerance. Neuro (-)focal weakness, (-)paresthesias, (-)gait instability, Hx seizures (-) Skin (-)Raynaud's- since teens,(+) rash- healing bruises,(-) ulcers, telangectasia (-) Psych (-) mood disorder. Recent hospitalizations for serious infections - NONE Active Ambulatory Problems Diagnosis Date Noted ??? No Active Ambulatory Problems Resolved Ambulatory Problems Diagnosis Date Noted ??? No Resolved Ambulatory Problems Past Medical History Diagnosis Date ??? Depresssion Past Surgical History Procedure Laterality Date ??? section 2005 No Known Allergies No current outpatient prescriptions on file. History Social History ??? Marital Status: Spouse Name: N/A Number of Children: N/A ??? Years of Education: N/A Occupational History ??? Not on file. Social History Main Topics ??? Smoking status: Current Every Day Smoker -- 0.50 packs/day for 16 years Types: Cigarettes ??? Smokeless tobacco: Never Used Comment: marijuana ??? Alcohol Use: No ??? Drug Use: No ??? Sexual Activity: Not on file Other Topics Concern ??? Not on file Social History Narrative Physical exam: Filed Vitals: 06/14/15 1348 BP: 113/69 Pulse: 76 Temp: 37.1 ??C (98.8 ??F) Gen: Patient is awake, alert and oriented x 3, in no distress Skin: warm and dry, no rheumatologic rashes Lymph: no cervical or submandibular adenopathy Thyroid: no nodules or thyromegaly Mouth: moist mucous membranes, no oral ulcers Eyes: normal sclerae Heart: regular rate, no murmurs, rubs or gallops Lungs: clear to auscultation b/l Spine: normal ROM and no tenderness Joints: mild tenderness over b/l wrists, MCP's/PIP normal ROM throughout the upper and lower extremity joints, no synovitis in the hands, wrists,elbows, shoulders, knees, ankles and feet tender points above and below the waist. Non DH labs- CRP-0.26 ESR-10 TSH-WNR. 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 Symptoms get better by 70% with use of high doses of ibuprofen (aleeve. Tylenol,tramdol does not help) but had to stop it due to complications of easy bruisability and hematoma in her medial thigh. Although patient reports episodes of R knee swelling and swelling of hands and feet in the AM, exam is negative for synovitis and her raynauds symptoms seem to be primary (age of onset-teens, normal nail fold capillaries).In the absence of other signs/symptoms of a rheumatological disease (absense of rash, photosensitivity, oral ulcers, joint swelling/redness, muscle weakness etc..) and normal inflammatory markers and a negative RF, my suspicion for an ongoing autoimmune disorder is very low. Although symptoms of generalized body aches, arthralgia and episodes of brain fogging with exam findings of tender points above and below the waist are suggestive of myofacial pain syndrome (fibromyalgia), absence of a trigger (sleep issues/mood changes/ stress) and intermittent episode of joint swelling (subjective) makes me wonder if her arthralgias could be an early manifestations of an evolving inflammatory arthritis. However, lack of synovitis and inflammatory markers is reassuring at this point. - Patients with fibromyalgia generally respond best to a multidisciplinary involving both non-pharmacologic measures and drug therapy. - Patient education regarding the disease, treatment approaches, good sleep hygiene and the adverseeffects of poor sleep on pain, and the importance of treating??. - Role of stress was explained. Patient was educated on simple relaxation techniques. - Advised on low-impact aerobic activities such as fast walking, biking, swimming, or water aerobics. - Will discontinue ibuprofen for concerns of bleeding problems and consider nabumetone (SALGADO 2>>>SALGADO 1) for breakthrough pain. - Patient understands to call us if she has any episodes of joint swelling or worsening of her Sx (will consider arthrocentesis as indicated). RTC- 2 mos. ? documented in this encounter Plan of Treatment Not on file documented as of this encounter Visit Diagnoses Diagnosis Myalgia Mylagia and myositis, unspecified Pain in joint, pain in unspecified joint Fibromyalgia Mylagia and myositis, unspecified documented in this encounter Care Teams Ent Surgeon Relationship Specialty Start Date End Date Jazmyn Wang, OCCUP THERAPIST [address] [place] [address] PCP - General Family Medicine 06/07/15 documented as of this encounter
--- OUTSIDE RECORDS SUMMARY | 2024-01-20 14:40 | XMS_ITS | Encounter Summary ---
Author Organization [facility] Address [address] [place] [address] Care Team Providers Care License Inspector Name Role Phone Diamond De La Torre MERT Primary Care Provider [phone] Encounter Details Date Type Department Care Team (Late st Contact Info) Description 01/27/2019 Results Only [facility] [phone] José Miguel Hale MD [address] [place] [id number] Social History Tobacco Use Types Packs/Day Years Used Date Smoking Tobacco: Never Assessed Sex and Gender Information Value Date Recorded Sex Assigned at Not on file Gender Identity Not on file Sexual Orientation Not on file documented as of this encounter Plan of Treatment Not on file documented as of this encounter Procedures Procedure Name Priority Date/Time Associated Diagnosis Comments SURGICAL PATHOLOGY Routine 01/27/2019 15 :23 EDT documented in this encounter Results * SURGICAL PATHOLOGY (01/27/2019 15:23 EDT) Pathology Report: SURGICAL PATHOLOGY REPORT Reports generated via electronic interface contain original data; however they are lacking the format of the original report. Caution should be taken when reading/interpretin g unformatted reports. Name: ? YAHAIRA LOIDA ? Accession #: ? [id number] ? : ? 1985 (Age: 33) ??F ? Collect Date: ? 01/27/2019 ? Location: ? [facility] ? Receive Date: ? 01/28/2019 ? Provider: JOSÉ MIGUEL HALE MD Copy to: ? Final Pathologic Diagnosis: A. 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 See comment. B. ??Cervix, 11 o'clock, biopsy: - ??Squamous metaplasia. Comment: Deeper levels were examined (Blocks A1, B1). Immunoperoxidase staining was performed on this case to further characterize the lesion. ? ANTIBODY(CLONE)(BLO CK):RESULT P16 (E6H4TM, Annabella) (A1): Strong, block-like staining within lesional epithelium. ? NOTE: ??One or more of the reagents used in immunoperoxidase testing in this case may not have been cleared or approved by the U.S. Food and Drug Administration (FDA). ??The FDA has determined that such clearance or approval is not necessary. ??These tests are used for clinical purposes. ??They should not be regarded as investigational or for research. ??These reagents' performance characteristics have been determined by the [facility] and/or by the referring laboratory. ??The positive and negative controls worked appropriately. ??If immunoperoxidase staining has been performed on alcohol fixed cytology specimens, which has not been fully validated, the assays should be interpreted with caution and correlated with clinical data. ??This laboratory is certified under the Clinical Laboratory Improvement Amendments of 1988 (CLIA-88) as qualified to perform high complexity clinical laboratory testing. Document reviewed and electronically signed by: DAVID ASTUDILLO MD PHD Report ??Date: 02/02/2019 10:58 By the signature above, the attending physician certifies that he/she has personally conducted a gross and/or microscopic examination of the described specimens and rendered or confirmed the above diagnosis. Specimen(s) Received: A. ??ECC B. ??Cervical biopsy 11 o'clock Clinical History: Cervical high risk HPV test positive; clinical diagnosis code: ??R87.810 Gross Description: A. ?Received in formalin labelled with proper patient identification (initials B, K) and ECC is an aggregate of blood tinged mucin (3.1 x 2.7 x 0.4 cm). The specimen is submitted entirely in A1-A2. B. ?Received in formalin labelled with proper patient identification (initials B, K) and cervical biopsy at 11 o'clock is a single fragment of white tissue (0.5 x 0.3 x 0.3 cm). The specimen is submitted entirely in B1. JENNIFER Hackett (ASCP) 01/28/2019 3:40 PM End of Report [facility] 01/27/2019 15:2 3 EDT 01/28/2019 15:23 EDT José Miguel Hale MD PATHOLOGY ORDERABL ES [facility] [address] [place] [address] documented in this encounter Visit Diagnoses Not on filedocumented in this encounter Care Teams License Inspector Relationship Specialty Start Date End Date Diamond De La Torre FNP [address] [place], [place] [id number] PCP - General 07/16/11 12/20/21 documented as of this encounter
--- OUTSIDE RECORDS SUMMARY | 2024-01-20 14:40 | XMS_ITS | Encounter Summary ---
[place] [address] Care Team Providers Care Photo Finisher Name Role Phone Jazmyn Wang APRN Primary Care Provider [phone] Encounter Details Date Type Department Care Team (Late st Contact Info) Description 06/13/2015 Telephone Hematology [place] [phone] Vielka Rubio, RN Social History Tobacco Use Types Packs/Day Years Used Date Smoking Tobacco: Every Day Cigarettes Alcohol Use Standard Drinks/Week Comments No 0 (1 standard drink = 0.6 oz pur e alcohol) Comments Yes Sex and Gender Information Value Date Recorded Sex Assigned at Not on file Gender Identity Not on file Sexual Orientation Not on file documented as of this encounter Miscellaneous Notes * Telephone Encounter - Vielka Rubio RN - 06/13/2015 10:02 AM EST Images from the original note were not included. Received a referral from Dr. Baumann for patient to be seen for 'easy bruising'. T/c to discuss nature of recent bruising.Lucía stated she has terrible pain in her thighs, discoloration and pain in her legs and swelling in her ankles. She does not recall injuring herself. States it seems worse in the evenings. She was taking ibprofen for the pain and has stopped for the testing. Her PCP has referred her for further evaluation. Lucía forwarded pictures for review. Appointment pending on 06/14/[address] Muhammad. Vielka Rubio MSN RN documented in this encounter Plan of Treatment Not on file documented as of this encounter Visit Diagnoses Not on filedocumented in this encounter Care Teams Photo Finisher Relationship Specialty Start Date End Date Jazmyn Wang APRN [address] [place] [address] PCP - General Family Medicine 06/07/15 documented as of this encounter
--- OUTSIDE RECORDS SUMMARY | 2024-01-20 14:40 | XMS_ITS | Encounter Summary ---
Author Organization [facility] Address [address] [place] [address] Care Team Providers Care Scroll Assembler Name Role Phone Diamond De La Torre MERT Primary Care Provider [phone] Encounter Details Date Type Department Care Team (Late st Contact Info) Description 07/17/2016 Results Only [facility] [phone] Vick Reich, PROPOSAL MANAGER [address],[facility] [address] [place] [address] Social History Tobacco Use Types Packs/Day Years [...] Diagnosis Comments PAP TEST- RESULT ONLY Routine 07/17/2016 0:00 EDT documented in this encounter Results * PAP TEST- RESULT ONLY (07/17/2016 0:00 EDT) Pathology Report: CYTOPATHOLOGY REPORT Reports generated via electronic interface contain original data; however they are lacking the format of the original report. Caution should be taken when reading/interpreti ng unformatted reports. Name: ? LOIDA SYED ? Accession #: ? [id number] ? : ? 1985 (Age: 31) ??F ?Collect Date: ? 07/17/2016 ? Location: ? [facility] ? Receive Date: ? 07/20/2016 ? Provider: VICK REICH PROPOSAL MANAGER Copy to: ? Final Report SPECIMEN ADEQUACY ? Satisfactory for Evaluation - transformation zone component absent GENERAL CATEGORIZATION ? Negative for Intraepithelial Lesion or Malignancy ?? Last Menstrual Period: 07/02/2016 Hormonal/Contracep tive status: None Tubal ligation Previous Gynecologic Pathology: LSIL: LGSIL 11/30 HSIL: HGSIL 08/31 Infection History: Chlamydia: HX Specimen/Source: ??Pap Test, Cervix/Endocervix, ThinPrep Imaging System with manual evaluation Document reviewed and electronically signed by: ? Noel Arellano, SHADE(ASCP) ? Report ??Date: 07/24/2016 12:51 HPV with Pap Test ? Date Ordered: ? 07/24/2016 ? Status: ?? Signed Out ?Date Complete: ? 07/25/2016 ? By: ??System Interface ? Date Reported: ? 07/25/2016 ? Interpretation RESULT: Positive for high or intermediate risk HPV. E6 OR E7 mRNA from one or more types of HPV types 16,18,31, 33,35,39,45,51,52, 56,58,59,66, and 68 is detected by veterinary virus serum inspector mediated amplification. High and intermediate risk HPV types are associated with most squamous intraepithelial lesions and cervical cancers. Comments Document reviewed and electronically signed by: ? System Interface ? Report date: 07/25/2016 By the signature above, the attending physician certifies that he/she has personally conducted a gross and/or microscopic examination of the described specimens and rendered or confirmed the above diagnosis. End of Report [facility] 07/17/2016 07/20/2016 Vick Reich APRN PATHOLOGY ORDERAB LES Performing Organization Address City/State/[facility] Co de Phone Number [facility] [address] [place] [address] documented in this encounter Visit Diagnoses Not on filedocumented in this encounter Care Teams Scroll Assembler Relationship Specialty Start Date End Date Diamond De La Torre FNP [address] [place], [place] [address] PCP - General 07/16/11 12/20/21 documented as of this encounter
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
--- OUTSIDE RECORDS SUMMARY | 2024-01-20 14:40 | XMS_ITS | Encounter Summary ---
Author Organization [facility] Address [address] [place] [address] Care Team Providers Care Diving Supervisor Name Role Phone Diamond De La Torre Primary Care Provider [phone] Encounter Details Date Type Department Care Team (Latest Contact Info) Description 03/10/2014 13:32 EST - 03/10/2014 23:59 [facility] Hospital Encounter [address] [address] Unknown, Provider, Discharge Disposition: Home or Self Care Social History Tobacco Use Types Packs/Day Years Used Date Smoking Tobacco: Never Assessed Sex and Gender Information Value Date Recorded Sex Assigned at Not on file Gender Identity Not on file Sexual Orientation Not on file documented as of this encounter Discharge Disposition Disposition Code Departure Means Destination Home or Self Detention documented in this encounter Plan of Treatment Not on file documented as of this encounter Visit Diagnoses Not on filedocumented in this encounter Care Teams Diving Supervisor Relationship Specialty Start Date End Date Diamond De La Torre FNP [address] [place], [place] [address] PCP - General 07/16/11 12/20/21 documented as of this encounter
--- OUTSIDE RECORDS SUMMARY | 2024-01-20 14:40 | XMS_ITS | Encounter Summary ---
Author Organization Counts [facility] Address [address] [facility] [place] [address] Care Team Providers Care Nursing Services Manager Name Role Phone Jazmyn Wang APRN Primary Care Provider [phone] Reason for Referral * Consultation (Routine) - Closed Specialty Diagnoses / Procedures Referred By Laura kirkpatrick Referred To Contact Sleep Center Diagnoses Snoring Jazmyn Wang APRN [address] [place] [address] [facility] Sleep Medicine [address] [place] [address] Referral ID Status Reason Start Date Expiration Date V isits Requested Visits Authorized [id number] Closed Consult, Test & Treat PCP Updated and/or Approved 06/13/2022 06/13/2023 12 12 Encounter Details Date Type Department Care Team (Late st Contact Info) Description 06/13/2022 Transcribe Orders eD Incoming Referrals [phone] Jazmyn Wang APRN [address] [place], [place] [id number] Snoring Social History Tobacco Use Types Packs/Day Years Used Date Smoking Tobacco: Every Day Cigarettes 0.5 16 Smokeless Tobacco: Never Comments:marijuana Alcohol Use Standard Drinks/Week Comments No 0 (1 standard drink = 0.6 oz pur e alcohol) Sex and Gender Information Value Date Recorded Sex Assigned at Not on file Gender Identity Not on file Sexual Orientation Not on file documented as of this encounter Plan of Treatment Scheduled Referrals Name Type Priority Associated Diagnoses Orde r Schedule Referral to Sleep Disorders Center Outpatient Referral Routine Snoring Ordered: 06/13/2022 documented as of this encounter Visit Diagnoses Diagnosis Snoring Other dyspnea and respiratory abnormality documented in this encounter Care Teams Nursing Services Manager Relationship Specialty Start Date End Date Jazmyn Wang APRN [address] [place] [address] PCP - General Family Medicine 06/07/15 documented as of this encounter
--- OUTSIDE RECORDS SUMMARY | 2024-01-20 14:40 | XMS_ITS | Encounter Summary ---
[place] [address] Care Team Providers Care Color Grinder Name Role Phone Vick Reich APRN Primary Care Provider [phone] Reason for Referral * Consultation (Routine) - Closed Specialty Diagnoses / Procedures Referred By Laura kirkpatrick Referred To Contact Rheumatology Diagnoses Pain in joint, pain in unspecified joint Alesia Gramajo MD [facility] HEMATOLOGY [place] [address] [facility] Rheumatology [address] [place] [phone] Referral ID Status Reason Start Date Expiration Date V isits Requested Visits Authorized [id number] Closed Consult, Test & Treat 06/14/2015 06/13/2016 1 1 Reason for Visit * Reason Comments Advice Only * Consultation (Routine) - Closed Specialty Diagnoses / Procedures Referred By Laura kirkpatrick Referred To Contact Hematology and Oncology Diagnoses disease peripheral vascular Vick Reich APRN [address] [place] [address] [facility] Onc [address] [place] [id number] Referral ID Status Reason Start Date Expiration Date V isits Requested Visits Authorized [id number] Closed Consult, Test & Treat Connection Center 06/07/2015 06/06/2016 1 1 Encounter Details Date Type Department Care Team (Late st Contact Info) Description 06/14/2015 10:00 AM EST Office Visit [place] [address] Alesia Gramajo MD [facility] [address] [place] [address] Vielka Rubio RN Bruising (Primary Dx); Pain in joint, pain in unspecified joint Social History Tobacco Use Types Packs/Day Years [...] Time Taken Comments Blood Pressure 113/69 06/14/2015 10:18 AM EST Pulse 76 06/14/2015 10:18 AM EST Temperature 37.1 ??C (98.8 ??F) 06/14/2015 10:[address] Respiratory Rate 18 06/14/2015 10:18 AM EST Oxygen Saturation 100% 06/14/2015 10:18 AM EST Inhaled Oxygen Concentration - - Weight 76.8 kg (169 lb 6.4 oz) 06/14/2015 10:18 AM EST Height 176.5 cm (5' 9.49) 06/14/2015 10:[address] Body Mass Index 24.67 06/14/2015 10:18 AM EST documented in this encounter Progress Notes * Alesia Muhammad MD - 06/14/2015 10:36 AM EST [facility] Department of Medicine [place], [place] [address] [facility] HEMOSTASIS CONSULTATION DATE OF VISIT 06/14/2015 Patient Lucía Powell 1985 REFERRING PHYSICIAN VICK REICH APRN PRIMARY CARE PHYSICIAN VICK REICH APRN REASON FOR CONSULTATION Evaluation of extensive spontaneous bruising HISTORY OF THE PRESENT ILLNESS Lucía Powell is a 30 y.o. woman with history of new onset of extensive spontaneous bruising overthe last 1-2 months, who is seen in consultation at the request of VICK REICH APRN for evaluation of bleeding disorder. The history is obtained from the patient, and I have reviewed extensivemedical records provided by the referring physician and located in the electronic medical recordto fill in gaps in the patient's recollection of events, treatments and outcomes. Lucía is a 30 year old woman presented with new onset of easy, spontaneous bruising on her lower extremities. She reports that her bruises are flat and not raised. They occurred spontaneously withoutany provocation. Initially her bruises are about quarter size, but they got bigger and spread to the whole upper thigh on both legs. She denies any bruise on her arms, torso or elsewhere. She denies any epistaxis, GI/ bleeding. She stated that she considered herself to bruise easily, but always with provocation. About 6 months ago she has noticed episodes of heavier menses than her baseline. Her menses usually lasts up to 5-6 days with 4 heavy days. Previously she would change her pad every 2 hours. 6 months ago she had to change her pad every 40 minutes and she noticed large blood clot with her period. However, her menses has returned back to her baseline now. She has never been diagnosewith iron deficiency. She has never needed to stay home or not going to work because of her menstrual period. She usually takes ibuprofen for 3 days/monthly for her menstrual cramp. However, over thelast 3 months she has been taking ibuprofen 600 mg PO every 3-4 hours for her leg pain. She has stopped ibuprofen for 7 days in anticipation of hemostasis work up today and has noticed improvement ofher bruises. However, she has significant pain in her joint/leg. Tylenol does not alleviate her pain like ibuprofen does. Her PCP has performed CBC, kidney function which were normal. I did not see coag result. She underwent several hemostatic challenges in the past including two C- sections, wisdom teeth extraction, multiple tattoo placement, cyst removal from her wrists, nose piercing without any bleeding complications. She stated that she has noticed morning stiffness in her fingers for a few years. Her finger stiffness usually improves during the day. However, she usually notices increased pain in both legs including her thigh, knees and ankles. Ibuprofen has alleviated her symptoms. PAST MEDICAL HISTORY Easy bruising OPERATIVE PROCEDURES C-sections 2x no postoperative bleeding complication. Cyst removal both wrists - no bleeding complication S/p index finger surgery - no bleeding complication S/p wisdom teeth extraction- no bleeding complication. OBSTETRIC HISTORY 1 miscarriage MEDICATIONS Previously on ibuprofen 600 mg every 3-4 hours for the last 2-3 months. Hold for 7 days. ADVERSE DRUG REACTIONS Allergies as of 06/14/2015 ??? (No Known Allergies) FAMILY HISTORY Father is alive, history of CO. Not contact him for long time. Mother of brain cancer at 50. Hx uterine cancer s/p hysterectomy. Maternal uncle with DM 1 older brother and 1 younger brother - no bleeding issues SOCIAL HISTORY Works as a population health manager 2 sons without bleeding issues. Tobacco 1/2-3/4 PPD/day, smoking since 14. Not ready to quit yet. Alcohol 2 drinks/day (beer) REVIEW OF SYSTEMS Fevers/chills/sweats No Recent infections No Unexplained weight loss No Headache/lightheadedness/syncope No Sinus pain/pressure No Oral sores/lesions/bleeding No Sore throat/dysphagia No Nosebleeds No Cough/SOB/chest pain/heart racing No Nausea/vomiting/dyspepsia No Abdominal pain No Diarrhea/constipation/rectal bleeding No Urinary pain, burning, incontinence No Hematuria No Vaginal discharge/bleeding No Skin rashes/ulcers No Back/joint pain/swelling Finger stiffness and swelling. Pain in both ankles and right knee today. Bilateral leg pain for a few months. Leg swelling/pain/redness Leg swelling intermittent Bruising/petechiae/bleeding/melena No Sensory/motor No Polydipsia/polyuria/heat/cold intol No Lumps/bumps/swollen glands No Other Negative except as above PHYSICAL EXAMINATION BP 113/69 mmHg Pulse 76 Temp(Src) 37.1 ??C (98.8 ??F) (Temporal) Resp 18 Ht 176.5 cm (5' 9.49) Wt 76.839 kg (169 lb 6.4 oz) BMI 24.67 kg/m2 SpO2 100% GENERAL: Well-appearing, articulate white female. HEENT: Oropharynx clear; no mucosal lesions, petechiae, bleeding, thrush or ulcers. NECK: Supple; no cervical, supraclavicular or submental adenopathy. BREASTS: Exam deferred. CHEST/LUNGS: Clear to auscultation/percussion. No rales, rhonchi, wheezes. HEART: Regular rate and rhythm; no murmur, rub, gallop GASTROINTESTINAL: Abdomen soft, non-tender GENITOURINARY: Exam deferred. EXTREMITIES: No clubbing, cyanosis or edema. No erythema, tenderness or palpable cords. No venous varicosities. No skin discoloration or hemosiderin deposits. MUSCULOSKELETAL: Spine nontender. Tenderness on her PIP both hands. Right knee mild effusion. Rightknee - painful on extension. SKIN: Ecchymoses on both thigh improving (compared to picture that she sent to us), No petechiae, ulcers or rashes. Multiple tattoo on extremities LYMPH: No palpable lymph nodes. NEUROLOGIC: Alert, oriented. Speech clear, coherent. No focal deficits noted. PSYCHIATRIC: Appropriate affect, no apparent distress. LABORATORY STUDIES Lab from PCP 06/06/2014 WBC 4.7 Hg 13.4 Platelet 212 RADIOGRAPHIC STUDIES None IMPRESSION Lucía Powell is a 30 y.o. woman with history of new onset of easy bruising for 1-2 months who ishere for evaluation of her bruising. Lucía has no previous history of bruising or bleeding manifestation prior to the last 1-2 months. She underwent multiple hemostatic challenges throughout her lifetime without any bleeding complication. Because she has no prior history of bleeding, congenital bleeding disorder is less likely. Her clinical manifestation with skin bruising can be explained by excessive use of ibuprofen over the last 3 months. She is taking ibuprofen for bilateral leg pain and joint pain. We asked her to stop ibuprofen 7 days prior to coming in today for lab work up and she has noticed improvement of her bruising after discontinuation of ibuprofen. I reviewed her previous lab which showed normal platelet count. I did not see the coag result from her PCP. I have ordered aPTT, PT today but she did not stop for the lab drawn. Given that her bruising has improved after discontinuation of ibuprofen, I think that we can hold off any further testingfor now. However, should she develop worsening of bruising while being off NSAIDs, we are happy to see her back to perform hemostasis work up. I have made a referral for her to see our prototype special build today for evaluation of her leg, joint pain and also finger stiffness/pain. I am concerned that she may have an underlying inflammatory arthritis. PLAN: 1. No further lab testing today given that her bruising has improved after discontinuation of ibuprofen 2. Referral to rheumatology for evaluation of her leg/joint pain 3. Avoid NSAIDs if possible to minimize bruising/bleeding All of her questions were answered at her satisfaction. While I won't schedule to see her back for routine follow up, she knows that she can call our office if she has any questions or concerns or ifshe develops worsening of bruising or bleeding. Alesia Muhammad MD [facility] . documented in this encounter Plan of Treatment Scheduled Referrals Name Type Priority Associated Diagnoses Orde r Schedule Referral to Rheumatology Outpatient Referral Routine Pain in joint, pain in unspecified joint Ordered: 06/14/2015 documented as of this encounter Visit Diagnoses Diagnosis Bruising- Primary Contusion of unspecified site Pain in joint, pain in unspecified joint documented in this encounter Care Teams Color Grinder Relationship Specialty Start Date End Date Vick Reich APRN [address] [place] [address] PCP - General Family Medicine 06/07/15 documented as of this encounter
--- OUTSIDE RECORDS SUMMARY | 2024-01-20 14:40 | XMS_ITS | Encounter Summary ---
Author Organization [facility] [place] [address] Care Team Providers Care Crepe Maker Name Role Phone None Primary Care Provider Unavailabl e Reason for Visit * Reason Comments Ultrasound Finding Encounter Details Date Type Department Care Team (Late st Contact Info) Description 03/06/2011 8:00 AM EST Office Visit Obstetrics [place] [address] Julian Bautista, [facility] [place] [address] Prior exam suggested anomaly, antepartum (Primary Dx); Family history of congenital heart defect; Genetic counseling Social History Tobacco Use Types Packs/Day Years Used Date Smoking Tobacco: Every Day Cigarettes Alcohol Use Standard Drinks/Week Comments No 0 (1 standard drink = 0.6 oz pur e alcohol) Comments Yes Sex and Gender Information Value Date Recorded Sex Assigned at Not on file Gender Identity Not on file Sexual Orientation Not on file documented as of this encounter Progress Notes * Julian Bautista, MS - 03/06/2011 9:01 AM EST Lucíanancy Villaley was referred to the Diagnosis Program by Susanne Duarte CNM due to 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 I met with Lucía for a 45 minute genetic counseling visit prior to her ultrasound and maternal- medicine consultation. She was accompanied to the visit by her , Luisito Powell. history Lucía is a 25 y.o. female currently at 20w5d by ultrasound dating (JEFFY 07/19/2011). She had a survey at [facility] on 02/19/2011, which showed an echogenic area in the fetus's abdomen. Screening results ?? Quad marker screen: Screen negative for open spina bifida (risk 1:11252), Down syndrome (risk 1:1510), and trisomy 18 (risk 1:72614). ?? Cystic fibrosis carrier screen: Negative in 2004 (report not available for review). Family history Inge's avhl-oeby-wlf son has a hole in his heart, which is reevaluated semiannually by Dr. Andrade at [facility]. Lucía's paternal grandmother has a transverse terminal limb defect involving her left arm below the elbow. Luisito's nephew has a congenital renal and/or ureter anomaly, which was iden tified prenatally. Luisito has a cousin with a history of cleft lip. Both of Luisito's sisters have hadtwo miscarriages. The remainder of the family history was unremarkable for any individuals with mental retardation, defects, recurrent loss, or known genetic conditions. 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 This finding has been associated with aneuploidy (especiallyDown syndrome), cystic fibrosis, congenital infection (cytomegalovirus and toxoplasmosis), congenital malformations of the bowel, early-onset growth restriction, and intra-amniotic bleeding. Most fetuses with echogenic bowel in the second trimester have a normal outcome. 2. Previous child with congenital heart defect: Congenital heart defects are the most common type of defect affecting up to 1% of the general population. The majority of congenital heart defects are isolated, although some will be associated with a chromosomal or genetic syndrome or an environmental exposure. The sibling of an individual with an isolated congenital heart defect has a 2-3% recurrence risk. Plan Lucía is scheduled for an ultrasound following our visit today to reevaluate the anatomy. Shedeclines amniocentesis at this time. A echocardiogram is recommended based on the family history. documented in this encounter Miscellaneous Notes * Miscellaneous - Junior Flight Radio Operator - 05/15/2011 2:20 PM EST documented in this encounter Plan of Treatment Not on file documented as of this encounter Visit Diagnoses Diagnosis Prior exam suggested anomaly, antepartum- Primary Other known or suspected abnormality, not elsewhere classified, affecting management of mother, antepartum condition or complication Family history of congenital heart defect Family history of congenital anomalies Genetic counseling documented in this encounter Care Teams Crepe Maker Relationship Specialty Start Date End Date None None PCP - General 02/28/11 06/06/15 documented as of this encounter
--- OUTSIDE RECORDS SUMMARY | 2024-01-20 14:40 | XMS_ITS | Encounter Summary ---
Author Organization [facility] Address [address] [place] [address] Care Team Providers Care Retail Operations Specialist Name Role Phone Diamond De La Torre MERT Primary Care Provider [phone] Encounter Details Date Type Department Care Team (Late st Contact Info) Description 10/21/2018 Results Only [facility]- [facility] [phone] Vick Reich, SUPERVISOR LABORATORY [address] [place] [address] Social History Tobacco Use Types Packs/Day Years [...] Diagnosis Comments PAP TEST- RESULT ONLY Routine 10/21/2018 0:00 EDT documented in this encounter Results * PAP TEST- RESULT ONLY (10/21/2018 0:00 EDT) Pathology Report: CYTOPATHOLOGY REPORT Reports generated via electronic interface contain original data; however they are lacking the format of the original report. Caution should be taken when reading/interpreti ng unformatted reports. Name: ? LOIDA SYED ? Accession #: ? [id number] ? : ? 1985 (Age: 33) ??F ?Collect Date: ? 10/21/2018 ? Location: ? [facility] ? Receive Date: ? 10/24/2018 ? Provider: VICK REICH SUPERVISOR LABORATORY Copy to: ? Final Report SPECIMEN ADEQUACY ? Satisfactory for Evaluation - transformation zone component present GENERAL CATEGORIZATION ? Negative for Intraepithelial Lesion or Malignancy ?? Last Menstrual Period: 09/2018 Hormonal/Contracep tive status: Tubal ligation Previous Gynecologic Pathology: LSIL: LGSIL 2010 LSIL: cant r/o HGSIL 2011 Yes: dysprauneia Other: Additional clinical information: Z00.00 Z12.4 Z01.419 Specimen/Source: ??Pap Test, Cervix/Endocervix, ThinPrep Imaging System with manual evaluation Document reviewed and electronically signed by: ? Nohemi Eric, SHADE(ASCP)(IAC) ? Report ??Date: 10/28/2018 16:09 HPV with Pap Test ? Date Ordered: ? 10/28/2018 ? Status: ?? Signed Out ?Date Complete: ? 10/29/2018 ? By: ??System Interface ? Date Reported: ? 10/29/2018 ? Interpretation RESULT: POSITIVE FOR HIGH OR INTERMEDIATE RISK HPV. E6 OR E7 mRNA from one or more types of HPV types 16,18,31, 33,35,39,45,51,52, 56,58,59,66, and 68 is detected by mobile device developer mediated amplification. High and intermediate risk HPV types are associated with most squamous intraepithelial lesions and cervical cancers. Comments Document reviewed and electronically signed by: ? System Interface ? Report date: 10/29/2018 By the signature above, the attending physician certifies that he/she has personally conducted a gross and/or microscopic examination of the described specimens and rendered or confirmed the above diagnosis. End of Report [facility] 10/21/2018 10/24/2018 Vick Reich SUPERVISOR LABORATORY PATHOLOGY ORDERAB LES [facility] [address] [place] [address] documented in this encounter Visit Diagnoses Not on filedocumented in this encounter Care Teams Retail Operations Specialist Relationship Specialty Start Date End Date Diamond De La Torre FNP [address] [place], [place] [id number] PCP - General 07/16/11 12/20/21 documented as of this encounter
--- OUTSIDE RECORDS SUMMARY | 2024-01-20 14:40 | XMS_ITS | Encounter Summary ---
Author Organization [facility] Address [address] [place] [address] Care Team Providers Care Water Conservation Specialist Name Role Phone Jazmyn Wang APRN Primary Care Provider [phone] Encounter Details Date Type Department Care Team (Latest Contact Info) Description 01/23/2022 Lab Requisition [facility] Pathology & Laboratory Medicine - [facility] [address] [place] [address] Jazmyn Wang, FIELD OPERATOR [address] [address] [place] [phone] Encounter for general adult medical examination without abnormal findings; Encounter for gynecological examination (general) (routine) without abnormal findings; Encounter for screening for malignant neoplasm of cervix Social History Tobacco Use Types Packs/Day Years [...] Name Priority Date/Time Associated Diagnosis Comments PAP TEST Today 01/22/2022 13:30 EDT Encounter for general adult medical examination without abnormal findings Encounter for gynecological examination (general) (routine) without abnormal findings Encounter for screening for malignant neoplasm of cervix HPV DNA DETECTION WITH GENOTYPING, PCR Today 01/22/2022 13:30 EDT Encounter for general adult medical examination without abnormal findings Encounter for gynecological examination (general) (routine) without abnormal findings Encounter for screening for malignant neoplasm of cervix documented in this encounter Results * HUMAN PAPILLOMAVIRUS (HPV) DETECTION-HIGH RISK TYPES (01/22/2022 13:30 EDT) HPV other High Risk types, PCR Negative Negative 01/29/2022 22:48 T [facility] Comment:No E6 or E7 mRNA is detected from HPV types 16,18,31,33,35,39,45,51,52,56,58,59,66, and 68 by practicing urologist mediated amplification. Papanicolaou smear specimen (specimen) CERVIX UTERI STRUCTURE / Unknown 01/22/2022 13:30 EDT 01/24/2022 14:27 EDT Jazmyn Wang APRN MICROBIOLOGY - NERAL ORDERABLES Performing Organization Address City/State/[facility] Co de Phone Number [facility] [address] [place] [phone] * PAP TEST (01/22/2022 13:30 EDT) Specimens A. Cervix and/or Endocervix , ThinPrep Imaging System with Manual Evaluation 01/29/2022 22:48 [facility] Specimen Adequacy Satisfactory for Evaluation - transformation zone component absent 01/29/2022 22:48 [facility] General Categorization Epithelial Cell Abnormality 01/29/2022 22:48 [facility] Descriptive Diagnosis Squamous Cell Abnormality - Atypical squamous cells, undetermined significance (ASC-US). 01/29/2022 22:48 [facility] Educational Comments [facility] recommends following the ASCCP's management guidelines which may be found at www.asccp.org 01/29/2022 22:48 [facility] Attestation By the signature below, the attending physician certifies that they have personally conducted a gross and/or microscopic examination of the described specimens and rendered or confirmed the above diagnosis. 01/29/2022 22:48 [facility] at [address]248 Clinical History See below 01/30/20 22:48 EDT [facility] HPV The result for the Human Papillomavirus (HPV) Detection-High Risk Types is Negative. No E6 or E7 mRNA is detected from HPV types 16,18,31,33,35,3 9,45,51,52,56,58 ,59,66, and 68 by practicing urologist mediated amplification.Te sting was performed on specimen [id number] and was resulted on 01/29/20223 EDT by ANISHA, LAB INSTRUMENT RESULTS IN 01/29/2022 22:48 EDT [facility] Performing Lab [facility] 01/29/2022 22:48 EDT [facility] Scanned Images 01/29/2022 22:48 EDT [facility] Papanicolaou smear specimen (specimen) CERVIX UTERI STRUCTURE / Unknown 01/22/2022 13:30 EDT 01/23/2022 11:09 EDT Jazmyn Wang APRN PATHOLOGY ORDERAB LES Performing Organization Address City/State/[facility] Co de Phone Number [facility] [address] [place] [address] documented in this encounter Visit Diagnoses Diagnosis Encounter for general adult medical examination without abnormal findings Unspecified general medical examination Encounter for gynecological examination (general) (routine) without abnormal findings Encounter for screening for malignant neoplasm of cervix Screening for malignant neoplasm of the cervix documented in this encounter Care Teams Water Conservation Specialist Relationship Specialty Start Date End Date Jazmyn Wang APRN [address] [place] [address] PCP - General 12/21/21 documented as of this encounter
--- OUTSIDE RECORDS SUMMARY | 2024-01-20 14:40 | XMS_ITS | Referral Summary ---
Author Organization [facility] Address [address] [place] [address] Care Team Providers Care Cooking Show Host Name Role Phone Jazmyn Wang APRN Primary Care Provider [phone] Social History Tobacco Use Types Packs/Day Years Used Date Smoking Tobacco: Never Assessed Interpersonal Safety Answer Date Record ed Physically Hurt Never 11/22/2019 Verbally Threaten Not on file 11/22/2019 Sex and Gender Information Value Date Recorded Sex Assigned at Not on file Gender Identity Not on file Sexual Orientation Not on file Plan of Treatment Not on file Care Teams Cooking Show Host Relationship Specialty Start Date End Date Jazmyn Wang APRN [address] [place] [address] PCP - General 12/21/21
--- OUTSIDE RECORDS SUMMARY | 2024-01-20 14:40 | XMS_ITS | Encounter Summary ---
Author Organization [facility] Address [address] [place] [address] Care Team Providers Care Corner Cutter Machine Operator Name Role Phone Diamond De La Torre Primary Care Provider [phone] Encounter Details Date Type Department Care Team (Latest Contact Info) Description 05/19/2013 13:13 EST - 05/19/2013 23:59 [facility] Hospital Encounter [address] [address] Unknown, Provider, Discharge Disposition: Home or Self [...] on filedocumented in this encounter Care Teams Corner Cutter Machine Operator Relationship Specialty Start Date End Date Diamond De La Torre FNP [address] [place], [place] [address] PCP - General 07/16/11 12/20/21 documented as of this encounter
--- OUTSIDE RECORDS SUMMARY | 2024-01-20 14:40 | XMS_ITS | Clinical Summary ---
Author Organization [facility] Address [facility] [place] [address] Care Team Providers Care Tool And Production Planner Name Role Phone Felipe Jazmynkasia Siddiqui APRN Primary Care Provider [phone] Allergies No known active allergies Medications Medication Sig Dispensed Refills Start Date End Date Status nabumetone (RELAFEN) 750 mg TabletIndications:Jaspreet n in joint, pain in unspecified joint Take 1 tablet by mouth 2 times daily. 60 tablet 0 06/14/2015 Active meloxicam (MOBIC) 15 mg Tablet Take 0.5 tablets by mouth daily. 30 tablet 0 08/18/2015 Active Active Problems No known active problems Immunizations Name Administration Dates Next Due Influenza Trivalent w/Preservative 02/20/2015 Family History Medical History Relation Comments HIV/AIDS Father Hypertension Mother Uterine Cancer Mother Seizure Disorder Other nephew (febrile seizures) Congenital Anomalies Paternal Grandmother transv erse terminal limb defect (left arm below elbow) Defects Son Heart Defect Son Relation Status Comments Father Mother Other Paternal Grandmother Son Social History Tobacco Use Types Packs/Day Years Used Date Smoking Tobacco: Every Day Cigarettes 0.5 16 Smokeless Tobacco: Never Comments:marijuana Alcohol Use Standard Drinks/Week Comments No 0 (1 standard drink = 0.6 oz pur e alcohol) Sex and Gender Information Value Date Recorded Sex Assigned at Not on file Gender Identity Not on file Sexual Orientation Not on file Last Filed Vital Signs Vital Sign Reading Time Taken Comments Blood Pressure 105/59 08/18/2015 3:49 PM EDT Pulse 60 08/18/2015 3:49 PM EDT Temperature 36.8 ??C (98.3 ??F) 08/18/2015 3:49 PM ED T Respiratory Rate 18 06/14/2015 10:18 AM EST Oxygen Saturation 99% 08/18/2015 3:49 PM EDT Inhaled Oxygen Concentration - - Weight 73 kg (161 lb) 08/18/2015 3:49 PM EDT Height 176.5 cm (5' 9.5) 08/18/2015 3:49 PM EDT Body Mass Index 23.43 08/18/2015 3:49 PM EDT Plan of Treatment Health Maintenance Due Date Last Done Comments HIV screen 2004 Hepatitis C Screening 2004 Lipid Screening 2004 Hepatitis B vaccine (0-59 yrs) (1) 2005 Tetanus/Diphtheria/Pertussis Vaccines (1 - Tdap) 03/29 HPV test 2016 PAP Smear 2016 Covid-19 Vaccine (1 - season) 2023 Influenza (Flu) vaccine (1 o f 1 - Influenza standard series) 12/22/2023 02/20/2015 Care Teams Tool And Production Planner Relationship Specialty Start Date End Date Jazmyn Wang APRN [address] [place] [address] PCP - General Family Medicine 06/07/15
--- OUTSIDE RECORDS SUMMARY | 2024-01-20 14:41 | XMS_ITS | Encounter Summary ---
Author Organization [facility] Address [address] [place] [address] Care Team Providers Care Electro Mechanical Designer Name Role Phone Unknown, Provider Primary Care Provider [phone] Encounter Details Date Type Department Care Team (Late st Contact Info) Description 07/12/2011 Results Only [facility] [phone] Jitendra Calle MD [address] [place] [address] Social History Tobacco Use Types Packs/Day Years Used Date Smoking Tobacco: Never Assessed Sex and Gender Information Value Date Recorded Sex Assigned at Not on file Gender Identity Not on file Sexual Orientation Not on file documented as of this encounter Plan of Treatment Not on file documented as of this encounter Procedures Procedure Name Priority Date/Time Associated Diagnosis Comments SURGICAL PATHOLOGY Routine 07/12/2011 0:00 EDT documented in this encounter Results * SURGICAL PATHOLOGY (07/12/2011 0:00 EDT) Pathology Report: SURGICAL PATHOLOGY REPORT Reports generated via electronic interface contain original data; however they are lacking the format of the original report. Caution should be taken when reading/interpreti ng unformatted reports. Name: ? LOIDA SYED ? Accession #: ? [id number] ? : ? 1985 (Age: 26) ??F ? Collect Date: ? 07/12/2011 ? Location: ? [facility] ? Receive Date: ? 07/13/2011 ? Provider: JITENDRA CALLE MD Copy to: KYLIE CANO LICENSING ENGINEER ? Final Pathologic Diagnosis: A. ?Fallopian tube, right, ligation: 1. ?Segment of fallopian tube with complete cross sections identified. B. ?Fallopian tube, left, ligation: 1. ?Segment of fallopian tube with complete cross sections identified. Document reviewed and electronically signed by: MALU FARMER MD Report ??Date: 07/16/2011 21:18 By the signature above, the attending physician certifies that he/she has personally conducted a gross and/or microscopic examination of the described specimens and rendered or confirmed the above diagnosis. Specimen(s) Received: A. ?Portion fallopian tube right B. ? Portion fallopian tube left Clinical History: ? Desired sterilization Gross Description: ? Received in formalin labelled Loida Syed and portion fallopian tube right is a 1.7 cm in length by 0.5 cm in diameter zhou-purple tubular soft tissue, grossly consistent with a segment of fallopian tube. ??Sectioning reveals a pink-zhou cut surface with a pinpoint lumen throughout. ??Two patient intake representative cross sections are submitted as (A). Received in formalin labelled Loida Syed and portion fallopian tube left is a 1.6 cm in length by 0.6 cm in diameter zhou-pink tubular soft tissue, grossly consistent with a segment of fallopian tube. ??Sectioning reveals a pink-zhou cut surface with a pinpoint lumen throughout. ??Two patient intake representative cross sections are submitted as (B). ??(Estuardo Anderson)/kailyn End of Report [facility] 07/12/2011 07/13/2011 8:1 8 EDT Jitendra Calle MD PATHOLOGY ORDERABLES Performing Organization Address City/State/[facility] Co de Phone Number [facility] [address] [place] [address] documented in this encounter Visit Diagnoses Not on filedocumented in this encounter Care Teams Electro Mechanical Designer Relationship Specialty Start Date End Date Unknown, Provider, PCP - General 12/06/10 07/15/11 documented as of this encounter
--- OUTSIDE RECORDS SUMMARY | 2024-01-20 14:41 | XMS_ITS | Encounter Summary ---
Author Organization [facility] Address [address] [place] [address] Care Team Providers Care Supervisor Network Control Operators Name Role Phone Unavailable Primary Care Provider Unavailabl e Encounter Details Date Type Department Care Team (Late st Contact Info) Description 10/16/2005 Results Only [facility] - [facility] [address] [place] [address] [place] Scott MD [address] [facility] [address] [phone] Social History Tobacco Use Types Packs/Day Years Used Date Smoking Tobacco: Never Assessed Sex and Gender Information Value Date Recorded Sex Assigned at Not on file Gender Identity Not on file Sexual Orientation Not on file documented as of this encounter Plan of Treatment Not on file documented as of this encounter Procedures Procedure Name Priority Date/Time Associated Diagnosis Comments CYTOPATHOLOGY Routine 10/16/2005 0:00 EDT documented in this encounter Results * CYTOPATHOLOGY (10/16/2005 0:00 EDT) Pathology Report: CYTOPATHOLOGY REPORT Reports generated via electronic interface contain original data; however they are lacking the format of the original report. Caution should be taken when reading/interpreti ng unformatted reports. Name: ? MATHIEU VILLALBA ? Accession #: ? [id number] : ? 1985 (Age: 20) ??F ?Collect Date: ? 10/16/2005 Location: ? [facility] ? Receive Date: ? 10/17/2005 Provider: ?[place] SCOTT MD Copy to: ? Specimen/Source: ?ThinPrep Pap Test, Cervix/Endocervix, processed on IMN ThinPrep Imaging System, with manual evaluation Last Menstrual Period: ? 10/09/05 Menstrual/Pregnanc y Status: ? Post Other: ? Additional clinical information: Nl exam ? SPECIMEN ADEQUACY ? Satisfactory for Evaluation - transformation zone component present GENERAL CATEGORIZATION ? Negative for Intraepithelial Lesion or Malignancy ? Document reviewed and electronically signed by: ? SHADE Madsen(ASCP) ? Report Date: ??10/19/2005 10:29 End of Report [facility] 10/16/2005 10/17/2005 [place] Scott MD PATHOLOGY ORDERABLES Performing Organization Address City/State/[facility] Co de Phone Number [facility] [address] [place] [address] documented in this encounter Visit Diagnoses Not on filedocumented in this encounter
--- OUTSIDE RECORDS SUMMARY | 2024-01-20 14:41 | XMS_ITS | Encounter Summary ---
Author Organization [facility] Address [address] [place] [address] Care Team Providers Care House Cleaner Name Role Phone Unavailable Primary Care Provider Unavailabl e Encounter Details Date Type Department Care Team (Latest Contact Info) Description 04/19/2005 22:21 EST Hospital Encounter [facility] - Other [address] [place] [address] [place] [address] Discharge Disposition: Home or Self Care Social History Tobacco Use Types Packs/Day Years Used Date Smoking Tobacco: Never Assessed Sex and Gender Information Value Date Recorded Sex Assigned at Not on file Gender Identity Not on file Sexual Orientation Not on file documented as of this encounter Discharge Disposition Disposition Code Departure Means Destination Home or Self Care documented in this encounter Plan of Treatment Not on file documented as of this encounter Visit Diagnoses Not on filedocumented in this encounter
--- OUTSIDE RECORDS SUMMARY | 2024-01-20 14:41 | XMS_ITS | Encounter Summary ---
Author Organization [facility] Address [address] [place] [address] Care Team Providers Care Performance Test Architect Name Role Phone Unknown, Provider Primary Care Provider Encounter Details Date Type Department Care Team (Late st Contact Info) Description 12/05/2010 Results Only [facility] Services - [facility] ([facility] [address] [place], [place] [address] [place]anne [place], [place] [address] Social History Tobacco Use Types Packs/Day Years [...] Diagnosis Comments PAP TEST- RESULT ONLY Routine 12/05/2010 0:00 EDT documented in this encounter Results * PAP TEST- RESULT ONLY (12/05/2010 0:00 EDT) Pathology Report: CYTOPATHOLOGY REPORT ? Reports generated via electronic interface contain original data; ? however they are lacking the format of the original report. ? Caution should be taken when reading/interpreti ng unformatted reports. ? Name: ? LOIDA SYED ? Accession #: ? [id number] ? : ? 1985 (Age: 25) ??F ?Collect Date: ? 12/05/2010 ? Location: ? [facility] ? Receive Date: ? 12/06/2010 ? Provider: ?SUSANNE MCCONNELL CNM ? Copy to: ?KYLIE CANO ASSISTANT STORE MANAGER ? Specimen/Source: ?Pap Test, Cervix/Endocervix, ThinPrep Imaging System ? with manual evaluation ? Last Menstrual Period: ? 6/15/11 ? Menstrual/Pregnanc y Status: ? SPECIMEN ADEQUACY ? Satisfactory for Evaluation ? - transformation zone component present ? GENERAL CATEGORIZATION ? Epithelial Cell Abnormality ? INTERPRETATION ? Squamous Cell Abnormality - Low grade squamous intraepithelial lesion ? (LSIL). ? EDUCATIONAL NOTES/RECOMMENDATI ONS ? [facility] recommends following the 2006 Consensus Guidelines for the Management of Women with Abnormal Cervical Cancer Screening Tests (JLGTD, ? 2007;11(4):201-222 ). ??Consensus guidelines are available online at ? www.ASCCP.org. ? Document reviewed and electronically signed by: ? JOSÉ MIGUEL WOO MD ? Report Date: ??12/12/2010 14:04 ? End of Report ? [facility] 12/05/2010 12/06/2010 Susanne Gerald CNM PATHOLOGY ORDERABLES [facility] [address] [place] [address] documented in this encounter Visit Diagnoses Not on filedocumented in this encounter Care Teams Performance Test Architect Relationship Specialty Start Date End Date Unknown, Provider, PCP - General 12/06/10 07/15/11 documented as of this encounter
[2024-01-20 21:46] LABS: Calculated LDL 119 mg/dL (<100); Cholesterol 177 mg/dL (<200); HDL Cholesterol 48 mg/dL (40-60); TSH (W/Ref FT4) 1.54 uIU/mL (0.36-3.74); Triglyceride 51 mg/dL (<150)
== END 2024-01-20 14:34 | disposition home or self-care (01) ==
LOC: NCHCN 14:33
PROVIDERS: PCP Nurse Practitioner Family; Visit Provider Nurse Practitioner Family
DX: Z12.4 Encounter for screening for malignant neoplasm of cervix (principal); E04.9 Nontoxic goiter, unspecified; I73.9 Peripheral vascular disease, unspecified
CPT/HCPCS: 80061; 88142; 84443; 87624

== ENCOUNTER 2024-05-04 02:03 | Outpatient (CLI) | payer MEDICAID, SELFPAY ==
--- NOTE | 2024-05-04 | DI.US_ITS ---
Exam(s) US THYROID EXAM: US THYROID CLINICAL HISTORY: Nontoxic simple goiter, E04.9. TECHNIQUE: Ultrasound thyroid performed using standard protocol. COMPARISON: No exams were available for comparison FINDINGS: ISTHMUS: 2 mm RIGHT LOBE: Size: 5.2 x 0.9 x 1.4 cm Echogenicity: Normal. Vascularity: Normal. Nodules: No suspicious nodules. 2 millimeter colloid cyst near upper pole. LEFT LOBE: Size: 4.2 x 1.1 x 1.7 cm Echogenicity: Normal. Vascularity: Normal. Nodules: None. OTHER FINDINGS: None. IMPRESSION: 2 millimeter colloid cyst right lobe of thyroid, otherwise normal sonographic appearance of the thyro id gland. DATA REPOSITORY:
== END 2024-05-04 02:23 ==
LOC: DI 02:03
PROVIDERS: PCP Nurse Practitioner Family; Visit Provider Nurse Practitioner Family
DX: E04.1 Nontoxic single thyroid nodule (principal)
CPT/HCPCS: 76536

== ENCOUNTER 2025-01-18 20:37 | Emergency (ER) | payer MEDICAID, SELFPAY ==
[2025-01-18 20:39] VITALS: BP 119/80; PULSE 77; RESP 16; TEMP 36.8; O2SAT 97
--- NOTE | 2025-01-18 21:08 | W.ED.GENAD ---
Discharge Plan Disposition Patient Disposition: Home Condition: Stable Discharge Details Clinical Impression: Cellulitis of right ankle Primary Care Provider: Jazmyn Wang ED Provider: Jose Orellana Home Meds and New Rx's Prescriptions: New amoxicillin-pot clavulanate 875-125 mg tablet 1 tab PO BID Qty: 14 0RF Continued clonidine HCl 0.1 mg tablet extended release 12 hr 0.1 mg PO DAILY Patient Comments: TAKE ONE TABLET BY MOUTH EVERY DAY lisdexamfetamine [Vyvanse] 20 mg capsule 20 mg PO DAILY Patient Comments: TAKE ONE CAPSULE BY MOUTH EVERY DAY No Action acetaminophen [Tylenol] 325 MG tablet 325 mg PO PC & HS ibuprofen [Ibuprofen IB] 200 MG tablet 200 mg PO PRN PRN methocarbamol 500 mg tablet 500 mg PO Q6H PRN (Reason: muscle spasm) Qty: 14 0RF lidocaine [Lidoderm] 5 % adhesive patch,medicated 1 patch TP DAILY PRN (Reason: pain) Qty: 15 0RF Rx Instructions: leave on most painful area for up to 12 hrs Discharge Instructions Additional Instructions: Your blood work did not show any concerning findings at this time. Take the antibiotics as prescribed. If you are not improving within a week follow-up with your primary care provider. If you feel significantly more ill or have new symptoms such as high fevers return to the emergency department for reevaluation. you can take 1000mg acetaminophen and 600mg ibuprofen every 6 hours as needed for pain HPI General Date/Time Provider Initiated Documentation: 01/18/25 20:51. Limitations to Documentation: no limitations. Information obtained by: patient. History of Present Illness 39 year old F presents to the emergency department with the chief complaint of right lateral ankle redness , described as moderate, Quality is described as aching, Patient started experiencing this day(s) (3) and it has been constant. No relieving factors improve symptom(s), No exacerbating factors reported . Patient notes other (nausea). Related Data Home Medications ?Medication ?Instructions ?Recorded ?Confirmed acetaminophen 325 mg tablet 325 mg PO PC & HS 07/16/15 01/18/25 (Tylenol) ibuprofen 200 mg tablet (Ibuprofen 200 mg PO PRN PRN 07/16/15 01/18/25 IB) lidocaine 5 % topical patch 1 patch topical DAILY PRN pain #15 11/24/20 01/18/25 (Lidoderm) ea methocarbamol 500 mg tablet 500 mg PO Q6H PRN muscle spasm #14 11/24/20 01/18/25 Held on 01/18/25. tabs Instructions: patient she nolonger takes this med amoxicillin 875 mg-potassium 1 tab PO BID #14 tabs 01/18/25 clavulanate 125 mg tablet clonidine HCl 0.1 mg 0.1 mg PO DAILY 01/18/25 01/18/25 tablet,extended release,12 hr lisdexamfetamine 20 mg capsule 20 mg PO DAILY 01/18/25 01/18/25 (Vyvanse) Previous Rx's ?Medication ?Instructions ?Recorded lidocaine 5 % topical patch 1 patch topical DAILY PRN pain #15 11/24/20 (Lidoderm) ea methocarbamol 500 mg tablet 500 mg PO Q6H PRN muscle spasm #14 11/24/20 Held on 01/18/25. tabs Instructions: patient she nolonger takes this med amoxicillin 875 mg-potassium 1 tab PO BID #14 tabs 01/18/25 clavulanate 125 mg tablet Allergies Allergy/AdvReac Type Severity Reaction Status Date / Time topiramate (From Topamax) Allergy Headache Verified 01/18/25 20:47 General Stated Complaint: InsectBite ELOY: 4 Review of Systems All systems reviewed & are unremarkable except as noted in HPI and below Constitutional Constitutional: Denies chills, Denies fever(s) and Denies weakness Cardiovascular Cardiovascular: Denies chest pain and Denies dyspnea Respiratory Respiratory: Denies cough and Denies dyspnea Gastrointestinal Gastrointestinal: Denies abdominal pain, Reports nausea and Reports vomiting Integumentary/Breasts Skin/Breast: Reports erythema Neurologic Neurologic: Denies weakness Exam Const General: no acute distress Orientation: alert [facility] Head: normal to inspection Ears: external ears normal General nose exam: external nose normal Mouth: moist mucous membranes Eyes General: appearance normal, both eyes and all related structures Neck Neck: normal visual inspection Resp Effort & Inspection: normal respiratory effort and able to speak in complete sentences Cardio Rate: regular rate Skin General skin exam: no rashes or lesions noted Neuro General: patient alert and patient oriented x3 Extrem General: full ROM and capillary refill normal Psych Mental Status: mental status grossly normal Course Vital Signs Vital signs: Vital Signs Temperature 36.8 C 01/18/25 20:39 Pulse 77 01/18/25 20:39 Respiratory Rate 16 01/18/25 20:39 Blood Pressure 119/80 01/18/25 20:39 Pulse Oximetry 97 01/18/25 20:39 Temperature 36.8 C 01/18/25 20:39 Temperature Source Oral 01/18/25 20:39 Pulse 77 01/18/25 20:39 Respiratory Rate 16 01/18/25 20:39 Blood Pressure 119/80 01/18/25 20:39 Blood Pressure Position Sitting 01/18/25 20:39 Pulse Oximetry 97 01/18/25 20:39 Oxygen Delivery Method Room Air 01/18/25 20:39 Oxygen Flow Rate 0 01/18/25 20:39 Pain Level 7 01/18/25 20:39 Medical Decision Making 39-year-old female who states she has a prior history of migraines comes in with right lateral ankle redness worsening since Saturday when she think she was bit by black flies. Denies any fevers. She also notes she has a headache similar to prior migraines and some nausea and vomiting. No fevers or chills. She has mild redness and swelling of the right lateral malleolus. The ankle itself is not swollen. She has no crepitus. She has intact sensation and pulses. I suspect cellulitis, given the joint is not swollen I doubt entities such as septic joint she has full range of motion of the ankle. I will check a CBC and CMP and treat her symptoms with Toradol, ceftriaxone and reassess. Labs unremarkable patient is feeling better. Will start her on oral antibiotics and she will follow-up with her PCP if not improving and return precautions given Differential Diagnosis Differential Diagnosis: cellulitis, migraine Lab Data Lab results reviewed: Yes I reviewed the patient's lab results. PFSH All Active Problems (Updated 01/18/25 @ 21:42 by Jose Orellana MD) Cellulitis of right ankle (Acute) Left-sided thoracic back pain (Acute) Chest pain (Acute) Surgical History section (07/11/12) repeat c/s with BTL Ligation of fallopian tube REPAIR LACERATED EXTENSOR TENDON LIF (07/20/14) Social History Smoking/Tobacco Use Status: Current every day Smoking risk assessment performed?: Yes Alcohol Intake: never Drug use: Occasionally Substance use type: marijuana Do you feel safe at home: Yes Do you feel safe in your relationship?: Yes
[2025-01-18] MEDS: cefTRIAXone 2 GM/50 ML BAG IVPB (21:30)
[2025-01-18] MEDS: Ketorolac 15 MG/ML VIAL IVP (21:30)
[2025-01-18] MEDS: Ondansetron 4 MG/2 ML VIAL IVP (21:30)
[2025-01-18 21:31] LABS: Abs Immature Grans 0.02 10^3/uL (0.0-0.06); HCT 38.5 % (36.0-46.0); HGB 12.8 g/dL (11.2-15.7); Immature Grans % 0.3 %; MCH 30.1 pg (27.0-33.0); MCHC 33.2 % (32.0-36.0); MCV 91 fL (80-95); MPV 10.3 fL (8.0-11.0); Platelet Count 284 10^3/uL (130-400); RBC 4.25 10^6/uL (3.93-5.22); RDW 12.5 % (11.7-14.6); RDW-SD 41.1 fL; WBC 6.02 10^3/uL (4.4-10.8)
[2025-01-18] MEDS: Normal Saline 1,000 ML 1000 ML IV (21:37)
[2025-01-18 21:46] LABS: ALT 31 U/L (14-59); AST 13 U/L (15-37); Albumin 3.8 g/dL (3.4-5.0); Alkaline Phosphatase 44 U/L (46-116); Anion Gap 8.2 mmol/L (3-11); BUN 11 mg/dL (7-18); Bilirubin, Total 0.3 mg/dL (0.2-1.0); CO2 28.8 mmol/L (21.0-32.0); Calcium 9.3 mg/dL (8.5-10.1); Chloride 105 mmol/L (98-107); Estimated GFR 113.46 (mL/min/1.73m2); Glucose 98 mg/dL (74-106); Potassium 3.8 mmol/L (3.5-5.1); Sodium 142 mmol/L (136-145); Total Protein 6.9 g/dL (6.4-8.2)
[2025-01-18 22:37] VITALS: BP 118/83; PULSE 72; RESP 18; TEMP 36.3; O2SAT 100
== END 2025-01-18 22:50 | disposition home or self-care (01) ==
LOC: ER 22:32
PROVIDERS: Emergency Provider Emergency Medicine; PCP Nurse Practitioner Family
DX: L03.115 Cellulitis of right lower limb (principal)
CPT/HCPCS: 99284 ×2; 96375; 80053; 96365; 85025; J0696; J1885; J2405